=== PATIENT | female | born 1960 | race Two or more races ===

== ENCOUNTER 2021-05-20 10:05 | Outpatient (REF) | payer OTHER, SELFPAY ==
[2021-05-20 11:19] LABS: Glucose Urine UA NEG (NEG); Leukocyte Esterase Urine 1+ (NEG); Nitrite Urine NEG (NEG); Specific Gravity - Urine 1.025 (1.005-1.025); UACC Culture Trigger YES; Urine Blood 2+ (NEG); Urine Ketones NEG (NEG); Urine Protein NEG (NEG-TRACE)
[2021-05-20 11:33] LABS: Appearance Urine HAZY; Color Urine YELLOW
[2021-05-20 12:55] LABS: Bacteria Urine 2+ /LPF; Squamous Epithelial Cell Urine 2+ /LPF; WBC Urine 30-49 /HPF (0-4)
== END 2021-05-20 10:06 | disposition home or self-care (01) ==
LOC: HO.LAB 10:05
PROVIDERS: PCP Internal Medicine; Visit Provider Internal Medicine
DX: R30.0 Dysuria (principal)
CPT/HCPCS: 81001; 81003; 87086

== ENCOUNTER 2021-07-01 09:59 | Outpatient (REF) | payer OTHER, SELFPAY ==
[2021-07-01 10:43] LABS: Glucose Urine UA NEG (NEG); Leukocyte Esterase Urine 2+ (NEG); Nitrite Urine NEG (NEG); PH 5.5 (5.0-8.0); Specific Gravity - Urine >= 1.030 (1.005-1.025); UACC Culture Trigger YES; Urine Blood 3+ (NEG); Urine Ketones NEG (NEG); Urine Protein 1+ MG/DL (NEG-TRACE)
[2021-07-01 10:47] LABS: Appearance Urine HAZY; Color Urine YELLOW
[2021-07-01 12:11] LABS: RBC Urine 30-49 /HPF (0); Squamous Epithelial Cell Urine TRACE /LPF
== END 2021-07-01 10:00 | disposition home or self-care (01) ==
LOC: HO.LAB 09:59
PROVIDERS: PCP Internal Medicine; Visit Provider Internal Medicine
DX: R30.0 Dysuria (principal)
CPT/HCPCS: 81001; 87086

== ENCOUNTER 2021-07-29 15:49 | Outpatient (REF) | payer OTHER, SELFPAY ==
[2021-07-29 16:24] LABS: COVID-19 Test Positive (Negative)
== END 2021-07-29 15:50 | disposition home or self-care (01) ==
LOC: HO.LAB 15:49
PROVIDERS: PCP Internal Medicine; Visit Provider Internal Medicine
DX: Z20.822 Contact with and (suspected) exposure to COVID-19 (principal)
CPT/HCPCS: 36415; 87635; C9803

== ENCOUNTER 2021-10-25 11:28 | Outpatient (REF) | payer OTHER, SELFPAY ==
[2021-10-25 13:00] LABS: Appearance Urine HAZY; Color Urine YELLOW; Glucose Urine UA NEG (NEG); Leukocyte Esterase Urine 1+ (NEG); Nitrite Urine NEG (NEG); PH 5.5 (5.0-8.0); Specific Gravity - Urine >= 1.030 (1.005-1.025); UACC Culture Trigger YES; Urine Blood 1+ (NEG); Urine Ketones NEG (NEG); Urine Protein TRACE MG/DL (NEG-TRACE)
[2021-10-25 13:15] LABS: Squamous Epithelial Cell Urine TRACE /LPF
[2021-10-25 13:16] LABS: Bacteria Urine 1+ /LPF; WBC Urine 50-75 /HPF (0-4)
[2021-10-25 13:17] LABS: RBC Urine 0-2 /HPF (0)
== END 2021-10-25 11:29 | disposition home or self-care (01) ==
LOC: HO.LAB 11:28
PROVIDERS: PCP Internal Medicine; Visit Provider Internal Medicine
DX: R30.0 Dysuria (principal)
CPT/HCPCS: 81001; 81003; 87086

== ENCOUNTER 2021-12-13 07:30 | Outpatient (REF) | payer OTHER, SELFPAY ==
[2021-12-13 07:53] LABS: MANUAL DIFF FLAG NO
[2021-12-13 08:31] LABS: Appearance Urine HAZY; Color Urine YELLOW; Glucose Urine UA NEG (NEG); Leukocyte Esterase Urine 1+ (NEG); Nitrite Urine NEG (NEG); Specific Gravity - Urine 1.025 (1.005-1.025); UACC Culture Trigger YES; Urine Blood NEG (NEG); Urine Ketones NEG (NEG); Urine Protein NEG (NEG-TRACE)
[2021-12-13 08:32] LABS: Basophils Percent Auto 0.5 % (0-2); Eosinophils Percent Auto 0.6 % (0-4); Hematocrit 41.8 % (37.0-47.0); Hemoglobin 13.6 g/dl (12.0-16.0); Imm Gran Abs Auto 0.02 X10*3/uL (0.00-0.03); Imm Gran Pct Auto 0.3 % (0.0-0.4); Lymphocytes Absolute Auto 2.5 X10*3/uL (1.2-4.9); Lymphocytes Percent Auto 38.3 % (20-40); Mean Corpuscular HGB Conc 32.5 g/dl (31.0-35.0); Mean Corpuscular Hemoglobin 28.7 pg (27.0-33.0); Mean Corpuscular Volume 88.2 fL (80.0-98.0); Mean Platelet Volume 10.2 fL (9.4-12.3); Monocytes Absolute Auto 0.5 X10*3/uL (0.1-1.2); Monocytes Percent Auto 8.1 % (2-11); Neutrophils Absolute Auto 3.4 x10*3/uL (2.0-8.3); Neutrophils Percent Auto 52.2 % (45-73); Platelet Count 357 X10*3/uL (160-400); Red Blood Count 4.74 X10*6/uL (4.20-5.50); Red Cell Distribution Width 12.5 % (11.0-16.0); White Blood Count 6.6 X10*3/uL (4.8-10.8)
[2021-12-13 08:48] LABS: Estimated Average Glucose 103 mg/dL; Hemoglobin A1c % 5.2 %
[2021-12-13 08:51] LABS: Bacteria Urine 1+ /LPF; RBC Urine 0-2 /HPF (0); Squamous Epithelial Cell Urine 2+ /LPF
[2021-12-13 08:59] LABS: Alanine Aminotransferase 26 U/L (0-31); Albumin Level 4.1 g/dL (3.5-5.0); Alkaline Phosphatase 70 U/L (39-117); Anion Gap 11 (12-20); Aspartate Amino Transferase 20 U/L (5-31); Bilirubin Total 0.4 mg/dL (0.0-1.0); Blood Urea Nitrogen 22 mg/dL (9-16); Calcium 9.5 mg/dL (8.4-10.2); Carbon Dioxide 26 mmol/L (22-29); Chloride 108 mmol/L (96-108); Cholesterol 223 mg/dL; Estimated Glomerular Filt Rate > 60; Glucose Random 95 mg/dL (60-115); HDL Cholesterol 39 mg/dL; LDL Cholesterol Calculated 166 mg/dl; Potassium 4.4 mmol/L (3.3-5.1); Sodium 141 mmol/L (135-145); Total Protein 7.1 g/dL (6.5-8.0); Triglycerides 90 mg/dL
[2021-12-13 09:22] LABS: Free T4 (Free Thyroxine) 1.07 ng/dL (0.71-1.85); Thyroid Stimulating Hormone 2.19 uIU/mL (0.32-4.0); Vitamin D 25-OH Total 23.2 ng/mL (>30)
[2021-12-13 10:25] LABS: Folate 11.9 ng/mL (> or = 4.0); Vitamin B12 513 pg/mL (200-900)
== END 2021-12-13 07:31 | disposition home or self-care (01) ==
LOC: HO.LAB 07:30
PROVIDERS: PCP Internal Medicine; Visit Provider Internal Medicine
DX: E78.00 Pure hypercholesterolemia, unspecified (principal); I10 Essential (primary) hypertension; R73.02 Impaired glucose tolerance (oral)
CPT/HCPCS: 36415; 80053; 80061; 81001; 82306; 82607; 82746; 83036; 84439; 84443; 85025; 87086

== ENCOUNTER 2021-12-15 09:05 | Outpatient (REF) | payer OTHER, SELFPAY ==
--- NOTE | ~2021-12-15 | MM_ITS ---
EXAMINATION: MM SCREENING DIGITAL BREAST TOMOSYNTHESIS, BILATERAL CLINICAL INFORMATION: Screening. Asymptomatic. The lifetime risk of breast cancer based on the Tyrer-Cuzick Model is 3%. COMPARISON: Mammography: 07/31/2018, 03/22/2017, 12/26/2015 TECHNIQUE: Digital breast tomosynthesis is performed in both the craniocaudal and mediolateral oblique views along with computer-aided detection (CAD). Synthesized 2D images are generated from the tomosynthesis. FINDINGS: There are scattered areas of fibroglandular density (ACR BI-RADS breast composition Category b). There are no significant masses, abnormal calcifications, or other abnormalities. Breast tissue composition borders on predominantly fatty. Tiny nodular asymmetry mid upper right breast on MLO view is stable since 2017. No developing density. The axilla and skin contours are unremarkable. MM/MM tomosynthesis screening BI IMPRESSION: No mammographic evidence of malignancy. ASSESSMENT: BI-RADS 2: Benign RECOMMENDATION: Routine annual mammography screening. This patient's information was entered into a reminder system with a target due date for their next mammogram.
== END 2021-12-15 09:06 | disposition home or self-care (01) ==
LOC: HO.MAMMO 09:05
PROVIDERS: PCP Internal Medicine; Visit Provider Internal Medicine
DX: Z12.31 Encounter for screening mammogram for malignant neoplasm of breast (principal)
CPT/HCPCS: 77063; 77067

== ENCOUNTER 2022-03-29 07:41 | Outpatient (REF) | payer OTHER, SELFPAY ==
[2022-03-29 09:17] LABS: Alanine Aminotransferase 20 U/L (0-31); Albumin Level 4.1 g/dL (3.5-5.0); Alkaline Phosphatase 76 U/L (39-117); Anion Gap 13 (12-20); Aspartate Amino Transferase 18 U/L (5-31); Bilirubin Total 0.3 mg/dL (0.0-1.0); Blood Urea Nitrogen 11 mg/dL (9-16); Calcium 9.4 mg/dL (8.4-10.2); Carbon Dioxide 25 mmol/L (22-29); Chloride 106 mmol/L (96-108); Cholesterol 247 mg/dL; Estimated Glomerular Filt Rate > 60; Glucose Random 98 mg/dL (60-115); HDL Cholesterol 49 mg/dL; LDL Cholesterol Calculated 169 mg/dl; Potassium 4.4 mmol/L (3.3-5.1); Sodium 140 mmol/L (135-145); Total Protein 7.3 g/dL (6.5-8.0); Triglycerides 148 mg/dL
== END 2022-03-29 07:42 | disposition home or self-care (01) ==
LOC: HO.LAB 07:41
PROVIDERS: PCP Internal Medicine; Visit Provider Internal Medicine
DX: E78.00 Pure hypercholesterolemia, unspecified (principal)
CPT/HCPCS: 36415; 80053; 80061

== ENCOUNTER 2022-04-08 10:26 | Outpatient (REF) | payer OTHER, SELFPAY ==
--- NOTE | ~2022-04-08 | XR_ITS ---
EXAMINATION: XR HIP, LEFT CLINICAL INFORMATION: Left hip pain COMPARISON: None TECHNIQUE: Two views of the left hip. FINDINGS: Bones and soft tissues are normal. No fracture. Alignment is anatomic. Hip joint space is maintained. XR/XR hip LT min 2V IMPRESSION: Normal left hip.
--- NOTE | ~2022-04-08 | XR_ITS ---
EXAMINATION: XR LUMBOSACRAL SPINE CLINICAL INFORMATION: Low back pain COMPARISON: None TECHNIQUE: Three views of the lumbosacral spine. FINDINGS: There are 5 not ribs bearing vertebral bodies in the lumbar spine. There is spina bifida occulta at S1 Vertebral bodies are well aligned and intervertebral discs are preserved. Pedicles are intact and sacroiliac joints unremarkable. XR/XR lumbar spine 2-3V IMPRESSION: Unremarkable examination.
== END 2022-04-08 10:27 | disposition home or self-care (01) ==
LOC: HO.XRAY 10:26
PROVIDERS: PCP Internal Medicine; Visit Provider Internal Medicine
DX: M54.50 Low back pain, unspecified (principal); M25.552 Pain in left hip
CPT/HCPCS: 72100; 73502

== ENCOUNTER 2022-07-04 07:31 | Outpatient (REF) | payer OTHER, SELFPAY ==
[2022-07-04 07:55] LABS: MANUAL DIFF FLAG NO
[2022-07-04 08:36] LABS: Basophils Percent Auto 0.4 % (0-2); Eosinophils Absolute Auto 0.1 X10*3/uL (0.0-0.4); Eosinophils Percent Auto 0.9 % (0-4); Hematocrit 39.4 % (37.0-47.0); Hemoglobin 13.4 g/dl (12.0-16.0); Imm Gran Abs Auto 0.04 X10*3/uL (0.00-0.03); Imm Gran Pct Auto 0.5 % (0.0-0.4); Lymphocytes Absolute Auto 2.5 X10*3/uL (1.2-4.9); Lymphocytes Percent Auto 32.2 % (20-40); Mean Corpuscular Hemoglobin 29.8 pg (27.0-33.0); Mean Corpuscular Volume 87.6 fL (80.0-98.0); Mean Platelet Volume 10.1 fL (9.4-12.3); Monocytes Absolute Auto 0.6 X10*3/uL (0.1-1.2); Monocytes Percent Auto 7.8 % (2-11); Neutrophils Absolute Auto 4.6 x10*3/uL (2.0-8.3); Neutrophils Percent Auto 58.2 % (45-73); Platelet Count 314 X10*3/uL (160-400); Red Cell Distribution Width 13.2 % (11.0-16.0); White Blood Count 7.8 X10*3/uL (4.8-10.8)
[2022-07-04 08:48] LABS: Estimated Average Glucose 103 mg/dL; Hemoglobin A1c % 5.2 %
[2022-07-04 09:00] LABS: Appearance Urine CLEAR; Color Urine YELLOW; Glucose Urine UA NEG (NEG); Leukocyte Esterase Urine NEG (NEG); Nitrite Urine NEG (NEG); PH 5.5 (5.0-8.0); Specific Gravity - Urine >= 1.030 (1.005-1.025); Urine Blood NEG (NEG); Urine Ketones NEG (NEG); Urine Protein NEG (NEG-TRACE)
[2022-07-04 09:04] LABS: Alanine Aminotransferase 41 U/L (0-31); Albumin Level 3.9 g/dL (3.5-5.0); Alkaline Phosphatase 71 U/L (39-117); Anion Gap 16 (12-20); Aspartate Amino Transferase 31 U/L (5-31); Bilirubin Total 0.4 mg/dL (0.0-1.0); Blood Urea Nitrogen 14 mg/dL (9-16); Calcium 8.7 mg/dL (8.4-10.2); Carbon Dioxide 24 mmol/L (22-29); Chloride 105 mmol/L (96-108); Cholesterol 203 mg/dL; Estimated Glomerular Filt Rate > 60; Glucose Random 100 mg/dL (60-115); HDL Cholesterol 51 mg/dL; LDL Cholesterol Calculated 130 mg/dl; Potassium 4.3 mmol/L (3.3-5.1); Sodium 141 mmol/L (135-145); Total Protein 6.7 g/dL (6.5-8.0); Triglycerides 110 mg/dL
== END 2022-07-04 07:32 | disposition home or self-care (01) ==
LOC: HO.LAB 07:31
PROVIDERS: PCP Internal Medicine; Visit Provider Internal Medicine
DX: E78.00 Pure hypercholesterolemia, unspecified (principal); R73.02 Impaired glucose tolerance (oral); R30.0 Dysuria
CPT/HCPCS: 36415; 80053; 80061; 81003; 83036; 85025

== ENCOUNTER 2022-10-12 07:39 | Day surgery (SDC) | payer OTHER, SELFPAY ==
--- NOTE | 2022-10-11 10:52 | HO.ANESPROP2 ---
Documented by User: Cami Odom NP 10/11/22 10:53 HPI - Anesthesia Eval Consult details Narrative: 62yo F for Colonoscopy PMFSH Active Problems Active Problems: All Active Problems (Updated 09/28/22 @ 12:46 by Qamar Marcus MD) Annual physical exam (Acute) Breast cancer screening by mammogram (Acute) Tubular adenoma of colon (Acute) COVID-19 virus infection (Acute) UTI (urinary tract infection) (Acute) Low back pain (Acute) Urinary incontinence, mixed (Acute) Pes anserinus bursitis of left knee (Acute) Annual physical exam (Acute) Breast cancer screening by mammogram (Acute) Hearing deficit (Acute) Dysuria (Acute) Impaired glucose tolerance (Acute) Hypercholesterolemia (Acute) Obesity (BMI 30-39.9) (Acute) Recurrent major depression (Acute) GERD (gastroesophageal reflux disease) (Acute) Hypertension (Acute) Past Medical History Medical History (Updated 09/28/22 @ 12:46 by Qamar Marcus MD) Allergic rhinitis Fatty liver GERD (gastroesophageal reflux disease) Hypercholesterolemia Hypertension Impaired glucose tolerance Migraine Obesity (BMI 30-39.9) Recurrent major depression Vitamin D deficiency Family History Family History (Updated 09/23/21 @ 15:41 by Qamar Marcus MD) Sister Myocardial infarct Paternal Grandfather Prostate CA Brother Colon cancer Substance abuse Surgical History Surgical History (Updated 10/11/22 @ 09:16 by Thi Sargent RN) History of section History of colonoscopy S/P WAYNE-BSO (total abdominal hysterectomy and bilateral salpingo-oophorectomy) Social History Social History (Updated 09/23/21 @ 15:42 by Qamar Marcus MD) Housing: House Alcohol intake: never Patient Tobacco Use Status: Former Tobacco user Tobacco use type: Cigarette Years Smoked: 1999 quit e-Cigarette/Vaping Use: Never Used Second Hand Smoke Exposure: No Use of substances other than those prescribed or required for medical reasons: No Are you DNR?: No Advance Directives: No Advance Directives Information Provided: Yes Current occupational status: employed Cognitive needs: No Hearing needs: No Vision needs: Yes Meds Allergies Allergy/AdvReac Type Severity Reaction Status Date / Time atorvastatin [Lipitor] AdvReac Mild joint Verified 09/28/22 12:17 cramps pravastatin AdvReac Mild body aches Verified 09/28/22 12:17 simvastatin AdvReac Mild body aches Verified 09/28/22 12:17 Exam Exam Date and Time: October 11, 2022 1052 Pertinent Lab Results Pertinent Lab Results: Laboratory Tests 07/04/22 07/04/22 07:53 07:53 WBC 7.8 Hgb 13.4 Hct 39.4 Plt Count 314 Sodium 141 Potassium 4.3 Chloride 105 Carbon Dioxide 24 BUN 14 Creatinine 0.72 Assessment and Plan Assessment Anesthesia Assessment: Chart Reviewed Documented by User: Dara Aguilar MD 10/12/22 08:45 PMFSH Past Medical History Medical History (Updated 09/28/22 @ 12:46 by Qamar Marcus MD) Allergic rhinitis Fatty liver GERD (gastroesophageal reflux disease) Hypercholesterolemia Hypertension Impaired glucose tolerance Migraine Obesity (BMI 30-39.9) Recurrent major depression Vitamin D deficiency Family History Family History (Updated 09/23/21 @ 15:41 by Qamar Marcus MD) Sister Myocardial infarct Paternal Grandfather Prostate CA Brother Colon cancer Substance abuse Family history of problems with anesthesia: No Surgical History Surgical History (Updated 10/11/22 @ 09:16 by Thi Sargent RN) History of section History of colonoscopy S/P WAYNE-BSO (total abdominal hysterectomy and bilateral salpingo-oophorectomy) History of Problems with Anesthesia: No Social History Social History (Updated 09/23/21 @ 15:42 by Qamar Marcus MD) Housing: House Alcohol intake: never Patient Tobacco Use Status: Former Tobacco user Tobacco use type: Cigarette Years Smoked: 1999 quit e-Cigarette/Vaping Use: Never Used Second Hand Smoke Exposure: No Use of substances other than those prescribed or required for medical reasons: No Are you DNR?: No Advance Directives: No Advance Directives Information Provided: Yes Current occupational status: employed Cognitive needs: No Hearing needs: No Vision needs: Yes Meds Allergies Allergy/AdvReac Type Severity Reaction Status Date / Time atorvastatin [Lipitor] AdvReac Mild joint Verified 09/28/22 12:17 cramps pravastatin AdvReac Mild body aches Verified 09/28/22 12:17 simvastatin AdvReac Mild body aches Verified 09/28/22 12:17 Exam Airway Mallampati Class: II TM Dist: >3cm Neck ROM: Full Assessment and Plan Assessment Anesthesia Assessment: Anesthesia Plan Discussed Final Anesthetic Review Family History of Problems with Anesthesia: No History of Problems with Anesthesia: No NPO: Yes ASA Class: II Final Preanesthetic Review: No Changes in Pt Med Stat, Meds/Allgs Chart Reviewed, Consent Obtained/Reviewed and Anes Risks/Benef Reviewed Patient Risk: Low Procedure Risk: Low Anesthetic Plan Anesthetic Plan: MAC: Disposition: Standard PACU
[2022-10-12 07:59] VITALS: BMI 32.5
[2022-10-12 08:07] VITALS: BP 155/83; PULSE 59; RESP 16; TEMP 36.2; O2SAT 99
[2022-10-12] MEDS: Lactated Ringers 1,000 ML 100 ML IVCONT (08:31)
--- NOTE | 2022-10-12 10:41 | P.BOP_ITS ---
Brief Operative Note Date of Service: 10/12/22 Pre-op diagnosis: Screening Post-op diagnosis: other (Colon polyp) Procedure: Colonoscopy to the cecum and TI with bx/removal of polyp Surgeon: Rodger Parham Anesthesia: MAC Was an Garment Manufacturer used for this Procedure?: No Estimated blood loss (mL): 2.0 Pathology: other (A. Polyp at 50cm) Condition: stable Disposition: PACU
[2022-10-12 10:43] VITALS: BP 116/44; PULSE 68; RESP 16; TEMP 36.3; O2SAT 96
[2022-10-12 10:58] VITALS: BP 153/75; PULSE 52; RESP 18; TEMP 36.3; O2SAT 99
[2022-10-12 11:02] VITALS: TEMP 36.6
--- NOTE | 2022-10-12 11:49 | OP_ITS ---
SURGEON: Rodger Parham MD INDICATIONS: The patient presents for evaluation of colorectal cancer screening and family history of colon cancer. Full consent was obtained from her for this, including risks of bleeding and perforation. PREOPERATIVE DIAGNOSIS: Colorectal cancer screening. POSTOPERATIVE DIAGNOSIS: PROCEDURE PERFORMED: Colonoscopy to the cecum and terminal ileum with biopsy removal of polyp. ESTIMATED BLOOD LOSS: COMPLICATIONS: ANESTHESIA: ASSISTANTS: SPECIMENS: POSTOPERATIVE DIAGNOSES: Colorectal cancer screening, small colon polyp, sigmoid diverticulosis, and internal hemorrhoids. PREOPERATIVE MEDICATION USED: Monitored anesthesia care. DESCRIPTION OF PROCEDURE: The patient was placed in the left lateral decubitus position. The digital rectal exam revealed no abnormalities. The Olympus video pediatric colonoscope was entered into the rectum and advanced easily to the cecum. Once in the cecum, I did identify normal-appearing cecal pouch with appendiceal orifice and a normal-appearing ileocecal valve. The terminal ileum was cannulated and appeared normal. The scope was withdrawn back in the colon. The entire cecum and ileocecal valve appeared normal. The scope was slowly withdrawn assessing all mucosal surfaces carefully. Preparation was excellent. A 50 cm was an approximately 3 or 4 mm polyp, which was biopsied and completely removed with cold biopsy forceps. I did not visualize any other polyps, colitis, or angiodysplasia. There was a mild amount of sigmoid diverticulosis. In the rectum, scope was retroflexed visualizing internal hemorrhoids, but no other pathology. The rectal mucosa appeared normal. Scope was straightened and withdrawn from the patient. She tolerated the procedure well and was returned to the recovery area in stable condition. IMPRESSION: 1. Small colon polyp, status post biopsy removal. 2. Diverticulosis. 3. Internal hemorrhoids. PLAN: The results of the pathology will be checked. I would recommend a repeat colonoscopy in 5 years for further screening and surveillance. She will otherwise see me on a p.r.n. basis. MD JP Dasilva/CHARLEY / [id number]
== END 2022-10-12 11:20 | disposition home or self-care (01) ==
PROVIDERS: PCP Internal Medicine; Visit Provider Internal Medicine
PROC: 0DJD8ZZ Inspection of Lower Intestinal Tract, Via Natural or Artificial Opening Endoscopic (ICD-10-PCS; CPT 45378; principal; 2022-10-12 09:40)
DX: Z12.11 Encounter for screening for malignant neoplasm of colon (principal); Z80.0 Family history of malignant neoplasm of digestive organs; Z86.010 Personal history of colon polyps; K51.40 Inflammatory polyps of colon without complications; K57.30 Diverticulosis of large intestine without perforation or abscess without bleeding; K64.8 Other hemorrhoids; K21.9 Gastro-esophageal reflux disease without esophagitis; I10 Essential (primary) hypertension; E78.00 Pure hypercholesterolemia, unspecified; E55.9 Vitamin D deficiency, unspecified; Z79.899 Other long term (current) drug therapy; Z88.8 Allergy status to other drugs, medicaments and biological substances; Z87.891 Personal history of nicotine dependence
CPT/HCPCS: 45380; 88305

== ENCOUNTER 2022-11-28 10:36 | Outpatient (REF) | payer OTHER, SELFPAY | END 2022-11-28 10:37 | disposition home or self-care (01) | LOC: HO.SH 10:36 | PROVIDERS: Visit Provider Internal Medicine | DX: Z01.118 Encounter for examination of ears and hearing with other abnormal findings (principal); H90.3 Sensorineural hearing loss, bilateral | CPT/HCPCS: 92557; 92567 ==

== ENCOUNTER 2022-12-19 09:28 | Outpatient (REF) | payer OTHER, SELFPAY ==
--- NOTE | ~2022-12-19 | MM_ITS ---
EXAMINATION: MM SCREENING DIGITAL BREAST TOMOSYNTHESIS, BILATERAL CLINICAL INFORMATION: Screening. Asymptomatic. The lifetime risk of breast cancer based on the Tyrer-Cuzick Model is 4%. COMPARISON: Mammography: 12/15/2021, 07/31/2018, 03/22/2017 TECHNIQUE: Digital breast tomosynthesis is performed in both the craniocaudal and mediolateral oblique views along with computer-aided detection (CAD). Synthesized 2D images are generated from the tomosynthesis. Additional left CC view is provided. FINDINGS: There are scattered areas of fibroglandular density (ACR BI-RADS breast composition Category b). There are no significant masses, abnormal calcifications, or other abnormalities. No architectural abnormality or developing density or significant change from prior studies. Breast tissue composition borders on predominantly fatty. MM/MM tomosynthesis screening BI IMPRESSION: No mammographic evidence of malignancy. ASSESSMENT: BI-RADS 1: Negative RECOMMENDATION: Routine annual mammography screening. This patient's information was entered into a reminder system with a target due date for their next mammogram.
== END 2022-12-19 09:29 | disposition home or self-care (01) ==
LOC: HO.MAMMO 09:28
PROVIDERS: Visit Provider Internal Medicine
DX: Z12.31 Encounter for screening mammogram for malignant neoplasm of breast (principal)
CPT/HCPCS: 77063; 77067

== ENCOUNTER 2023-02-23 10:15 | Outpatient (REF) | payer OTHER, SELFPAY ==
--- NOTE | ~2023-02-23 | XR_ITS ---
EXAMINATION: XR KNEE AP STANDING CLINICAL INFORMATION: Right knee pain. COMPARISON: Radiographs dated 04/21/2011. TECHNIQUE: AP bilateral standing view of the knees was obtained. FINDINGS: Bony alignment and mineralization are normal. The lateral and medial joint space compartments of the right knee are well-maintained. There is mild asymmetric narrowing of the medial joint space compartment of the left knee, with peripheral osteophyte formation. The lateral joint space compartment is well-maintained. No fracture or dislocation is seen. The soft tissue planes are unremarkable, without foreign body. XR/XR knee standing BI IMPRESSION: There is mild degenerative change of the medial joint space compartment left knee. The right knee is unremarkable. No significant varus or valgus configuration is seen bilaterally.
== END 2023-02-23 10:16 | disposition home or self-care (01) ==
LOC: HO.XRAY 10:15
PROVIDERS: PCP Internal Medicine; Visit Provider Internal Medicine
DX: M25.561 Pain in right knee (principal); M25.562 Pain in left knee
CPT/HCPCS: 73565

== ENCOUNTER 2023-10-05 12:24 | Outpatient (AMB) | payer OTHER, SELFPAY ==
[2023-10-05 12:39] VITALS: BP 178/90; PULSE 76; O2SAT 96; BMI 32.8
--- NOTE | 2023-10-05 12:39 | MHC.PC.OV ---
Vital Signs 10/05/23 12:39 Height 5 ft 1 in Weight 173 lb 8 oz BMI 32.8 BP 178/90 H Blood Pressure Location Lt brachial Position Sitting Pulse 76 Pulse Source Pulse Oximeter Pulse Oximetry (%) 96 Oxygen Delivery Method Room Air Intake Visit Reasons: physical Cork Compounder Required: No Accompanied by: Self / Same As Patient Allergies atorvastatin [Lipitor] Adverse Reaction (Mild, Verified 10/05/23 12:41) joint cramps pravastatin Adverse Reaction (Mild, Verified 10/05/23 12:41) body aches simvastatin Adverse Reaction (Mild, Verified 10/05/23 12:41) body aches Medication List - Last Reconciled 10/05/23 by Qamar Marcus MD blood pressure monitor (Blood Pressure Kit) As directed hydrochlorothiazide 25 mg PO DAILY lisinopril 40 mg PO DAILY 30 days rosuvastatin 5 mg PO DAILY 30 days Tobacco use date assessed: 02/23/23 Fall risk assessment: No Falls in past year Last assessed Fall Risk: 10/05/23 Dental Screening Dental Screen Date: 10/25/23 Did you have a dental visit in the last 12 months?: No Did you have a dental problem in the last 6 months where you did not have access to dental care?: No Was dental information given to patient?: Yes HPI physical HPI Details 63-year-old obese female with hypertension coming for physical exam last seen in April 2023. Colonoscopy is up-to-date September 2022 mammograms up-to-date [facility] Medical History (Updated 10/05/23 @ 12:57 by Qamar Marcus MD) Impaired glucose tolerance Allergic rhinitis Migraine Hypercholesterolemia Obesity (BMI 30-39.9) Recurrent major depression Fatty liver GERD (gastroesophageal reflux disease) Hypertension Vitamin D deficiency Surgical History History of colonoscopy History of section S/P WAYNE-BSO (total abdominal hysterectomy and bilateral salpingo-oophorectomy) Family History Sister Myocardial infarct Paternal Grandfather Prostate CA Brother Colon cancer Substance abuse Social History Housing: House Alcohol intake: never Patient Tobacco Use Status: Former Tobacco user Tobacco use type: Cigarette Years Smoked: 2000 quit e-Cigarette/Vaping Use: Never Used Second Hand Smoke Exposure: No Current occupational status: employed Cognitive needs: No Hearing needs: No Vision needs: Yes Questionnaire Thrive Questionnaire Date Thrive assessed: 02/23/23 MOLINA-7 AMB Questionnaire MOLINA-7 Date MOLINA - 7 assessed: 02/23/23 Source: Developed by Drs. Rodger Butcher, Miri Lee, Ellis Upton and colleagues, with an educational trace from [place]. Review of Systems Const Denies poor appetite and Denies weakness Eyes Denies no additional complaints ENT Reports Normal hearing present, Denies dizziness, Denies nasal congestion, Denies tinnitus and Denies sore throat Card Denies chest pain, Denies syncope, Denies rapid heart rate and Denies dyspnea Resp Denies cough and Denies dyspnea GI Denies change in stool character, Reports constipation, Denies diarrhea, Denies nausea and Denies vomiting Denies urinary frequency, Denies difficulty voiding and Denies dysuria Neuro Reports Normal hearing present, Denies confusion, Denies dizziness, Denies syncope and Denies weakness Psych Denies confusion Physical exam (Primary Care) Vital Signs: Last Vital Signs Pulse 76 10/05/23 12:39 BP 178/90 H 10/05/23 12:39 Pulse Ox 96 10/05/23 12:39 Oxygen Delivery Method Room Air 10/05/23 12:39 BMI result Body Mass Index 32.8 Tobacco/Smoking Status: Tobacco use Status Tobacco use date assessed 02/23/23 10/05/23 12:47 Patient Tobacco Use Status Former Tobacco user 10/05/23 12:47 Tobacco use type Cigarette 10/05/23 12:47 e-Cigarette/Vaping Use Never Used 10/05/23 12:47 Thrive Assessment: Date of Thrive Assessment Date Thrive assessed 02/23/23 10/05/23 12:47 Const General: alert and awake; No confusion Orientation/consciousness: No confusion HENMT Head: Yes normocephalic Ears: external ears normal and TM's normal bilaterally Face and sinus: Yes normal facial exam Mouth: moist mucous membranes Throat: Yes tonsils normal Eyes Conjunctivae: conjunctivae normal Pupils: Equal, round and reactive pupils present and Pupil accommodation reflex normal Direct Ophthalmoscopy: normal light reflex Neck Neck: No lymphadenopathy Thyroid: Thyroid normal Chest Chest palpation & inspection: normal inspection of the chest Resp Effort & Inspection: normal respiratory effort and no audible wheezes Auscultation: clear to auscultation bilaterally, no crackles, no wheezes and lung sounds not diminished Cardio Rate: regular rate Rhythm: regular rhythm Peripheral pulses: radial pulses present and dorsalis pedis present GI Palpation (GI): no masses Auscultation: normal bowel sounds and normoactive bowel sounds Rectal Exam - Female: deferred Skin General skin exam: no rashes or lesions noted Rashes: no rashes Neuro General: deep tendon reflexes 2+ bilaterally and No confusion Cranial nerves: Yes Equal, round and reactive pupils present, Yes Midline tongue present, Yes Normal hearing present and Yes Ability to bilaterally elevate shoulders present Cognition (Neuro): normal cognition Gait exam (Neuro): Normal gait present Motor exam (neuro): 5/5 motor strength present throughout Deep tendon reflexes (DTR's): Right brachioradialis reflex intensity grade: 2+, Left brachioradialis reflex intensity grade: 2+, Right patellar reflex intensity grade: 2+ and Left patellar reflex intensity grade: 2+ Extrem General: No edema Office Procedures Flu Questionnaire Does the patient have a severe egg allergy?: No Does the patient have severe life threatening allergies?: No Does the patient have a fever or illness today?: No Has the patient ever had Guillain-[place] Syndrome?: No Has the patient ever had any past reaction to a flu shot?: No Immunizations flu vacc [id number] 6mos up(PF) 60 mcg(15 mcgx4)/0.5 mL IM syringe Performing Provider: Qamar Marcus MD [facility] Administered by: WILNER Forbes on 10/05/23 12:55 Dose Route Admin Location Dispensed Lot Number Expiration Date NDC Toilet Products Molder 0.5 mL IM Left Deltoid 0.5 mL [id number] 05/19/24 05123-519-33 [employer] VIS Given Date VIS Provided VIS Publication Date 10/05/23 Single Vaccine 21 Eligibility Eligibility Date Funding Source Not [facility] Eligible 10/05/23 Private Assessment and Plan Assessment & Plan (1) Annual physical exam: Code(s): Z00.00 - Encounter for general adult medical examination without abnormal findings (2) Hypertension: Code(s): I10 - Essential (primary) hypertension Plan: Continue with blood pressure medication. Decrease salt intake and exercise patient presently on lisinopril 40 mg and hydrochlorothiazide 25 mg (3) GERD (gastroesophageal reflux disease): Code(s): K21.9 - Gastro-esophageal reflux disease without esophagitis Plan: Avoid the foods that causes that usually spicy foods, tomato products, juices, coffee, soda and foods that your sensitive to. After eating do not lie down, allow 3-4 hours before in lie down. And keep the head of bed above 30 degrees to avoid the acid from going up. (4) Recurrent major depression: Comment: Declined referral for counseling February 2023 Code(s): F33.9 - Major depressive disorder, recurrent, unspecified Plan: Stable (5) Obesity (BMI 30-39.9): Code(s): E66.9 - Obesity, unspecified Plan: Diet and exercise (6) Hypercholesterolemia: Code(s): E78.00 - Pure hypercholesterolemia, unspecified Plan: Avoid fried foods, chicken skin, eggs, butter margarine, pastries and meat. Be it pork or beef they have a lot of cholesterol on rosuvastatin LDL goal of less than 130 and triglyceride of less than 150 (7) Impaired glucose tolerance: Code(s): R73.02 - Impaired glucose tolerance (oral) Plan: Decrease the amount of carbohydrate intake, pasta, bread, rice and potatoes are all sugar and that is aside from all the sweet stuff, remember that fruits are good but they are Sweet also. (8) Urge incontinence: Code(s): N39.41 - Urge incontinence Orders: Orders Influenza [id number] Immunization Today Z23 - Encounter for immunization Medications: New amlodipine 2.5 mg PO DAILY 30 tabs 2RF I10 - Essential (primary) hypertension tolterodine ER (Detrol LA) 4 mg PO DAILY 30 caps 2RF N39.41 - Urge incontinence Coding Level of Care Code New Pt Prev Care 40-64y(27907) Diagnoses Annual physical exam Z00.00 Hypertension I10 GERD (gastroesophageal reflux disease) K21.9 Recurrent major depression F33.9 Obesity (BMI 30-39.9) E66.9 Hypercholesterolemia E78.00 Impaired glucose tolerance R73.02 Urge incontinence N39.41
== END 2023-10-05 13:08 | disposition home or self-care (01) ==
PROVIDERS: Visit Provider Internal Medicine
DX: Z00.00 Encounter for general adult medical examination without abnormal findings (principal); F33.9 Major depressive disorder, recurrent, unspecified; Z68.32 Body mass index [BMI] 32.0-32.9, adult; E66.9 Obesity, unspecified; I10 Essential (primary) hypertension; K21.9 Gastro-esophageal reflux disease without esophagitis; E78.00 Pure hypercholesterolemia, unspecified; R73.02 Impaired glucose tolerance (oral); N39.41 Urge incontinence; Z23 Encounter for immunization
CPT/HCPCS: 90471; 90686; 99386

== ENCOUNTER 2023-12-01 07:27 | Outpatient (REF) | payer OTHER, SELFPAY ==
[2023-12-01 07:48] LABS: MANUAL DIFF FLAG NO
[2023-12-01 08:41] LABS: Basophils Percent Auto 0.5 % (0-2); Eosinophils Absolute Auto 0.1 X10*3/uL (0.0-0.4); Eosinophils Percent Auto 0.9 % (0-4); Hematocrit 40.7 % (37.0-47.0); Hemoglobin 14.2 g/dl (12.0-16.0); Imm Gran Abs Auto 0.03 X10*3/uL (0.00-0.03); Imm Gran Pct Auto 0.4 % (0.0-0.4); Lymphocytes Absolute Auto 3.3 X10*3/uL (1.2-4.9); Lymphocytes Percent Auto 40.6 % (20-40); Mean Corpuscular HGB Conc 34.9 g/dl (31.0-35.0); Mean Platelet Volume 10.5 fL (9.4-12.3); Monocytes Absolute Auto 0.6 X10*3/uL (0.1-1.2); Monocytes Percent Auto 7.8 % (2-11); Neutrophils Percent Auto 49.8 % (45-73); Platelet Count 326 X10*3/uL (160-400); Red Blood Count 4.73 X10*6/uL (4.20-5.50); Red Cell Distribution Width 12.9 % (11.0-16.0); White Blood Count 8.1 X10*3/uL (4.8-10.8)
[2023-12-01 09:24] LABS: Alanine Aminotransferase 40 U/L (0-31); Albumin Level 4.1 g/dL (3.5-5.0); Alkaline Phosphatase 60 U/L (39-117); Anion Gap 13 (12-20); Aspartate Amino Transferase 28 U/L (5-31); Bilirubin Total 0.5 mg/dL (0.0-1.0); Blood Urea Nitrogen 18 mg/dL (9-16); Calcium 9.2 mg/dL (8.4-10.2); Carbon Dioxide 30 mmol/L (22-29); Chloride 101 mmol/L (96-108); Cholesterol 273 mg/dL (<200); Estimated Glomerular Filt Rate > 60; Glucose Random 87 mg/dL (60-115); HDL Cholesterol 44 mg/dL (>40); LDL Cholesterol Calculated 202 mg/dL (<100); Potassium 3.2 mmol/L (3.3-5.1); Sodium 141 mmol/L (135-145); Total Protein 7.3 g/dL (6.5-8.0); Triglycerides 138 mg/dL (<150)
[2023-12-01 09:47] LABS: Free T4 (Free Thyroxine) 1.03 ng/dL (0.71-1.85); Thyroid Stimulating Hormone 3.06 uIU/mL (0.32-4.0); Vitamin D 25-OH Total 23.6 ng/mL (>30)
[2023-12-01 10:52] LABS: Folate 10.9 ng/mL (> or = 4.0); Vitamin B12 448 pg/mL (200-900)
== END 2023-12-01 07:28 | disposition home or self-care (01) ==
LOC: HO.LAB 07:27
PROVIDERS: PCP Internal Medicine; Visit Provider Internal Medicine
DX: I10 Essential (primary) hypertension (principal); E78.00 Pure hypercholesterolemia, unspecified
CPT/HCPCS: 36415; 80053; 80061; 82306; 82607; 82746; 84439; 84443; 85025

== ENCOUNTER 2023-12-11 14:36 | Outpatient (AMB) | payer OTHER, SELFPAY ==
[2023-12-11 14:38] VITALS: BP 148/90; PULSE 64; O2SAT 99; BMI 33.4
--- NOTE | 2023-12-11 14:38 | A.OFFPC_ITS ---
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 Allergies hydrochlorothiazide Adverse Reaction (Intermediate, Verified 12/11/23 14:38) hypokalemia lisinopril Adverse Reaction (Intermediate, Verified 12/11/23 14:38) leg cramps atorvastatin [Lipitor] Adverse Reaction (Mild, Verified 12/11/23 14:38) joint cramps pravastatin Adverse Reaction (Mild, Verified 12/11/23 14:38) body aches simvastatin Adverse Reaction (Mild, Verified 12/11/23 14:38) body aches Medication List - Last Reconciled 12/11/23 by Qamar Marcus MD amlodipine 5 mg PO DAILY blood pressure monitor (Blood Pressure Kit) As directed lisinopril 40 mg PO DAILY 30 days rosuvastatin 5 mg PO DAILY 30 days tolterodine ER (Detrol LA) 4 mg PO DAILY Tobacco use date assessed: 12/11/23 Fall risk assessment: No Falls in past year Last assessed Fall Risk: 12/11/23 Dental Screening Dental Screen Date: 12/11/23 Did you have a dental visit in the last 12 months?: No Did you have a dental problem in the last 6 months where you did not have access to dental care?: No HPI HTN , Urge incontinence HPI Details 63-year-old obese female with hypertensi on GERD recurrent major depression hypercholesterolemia impaired glucose tolerance and urge incontinence last seen in September 2023 for physical exam. Patient's colonoscopy is up-to-date September 2022 mammogram is up-to-date November 2022. Due this month. Discussion with the patient with regards to the medication and patient has he is taken the medication and advised to bring the medications in. Patient brought in 2.5 mg of amlodipine and 5 mg of amlodipine at the same time patient also brought in hydrochlorothiazide which has been stopped. As for cholesterol is supposed to be on rosuvastatin but not really sure if the patient is taking it as the LDL changed. [facility] Medical History (Updated 12/01/23 @ 18:48 by Qamar Marcus MD) Impaired glucose tolerance Allergic rhinitis Migraine Hypercholesterolemia Obesity (BMI 30-39.9) Recurrent major depression Fatty liver GERD (gastroesophageal reflux disease) Hypertension Vitamin D deficiency Surgical History History of colonoscopy History of section S/P WAYNE-BSO (total abdominal hysterectomy and bilateral salpingo-oophorectomy) Family History Sister Myocardial infarct Paternal Grandfather Prostate CA Brother Colon cancer Substance abuse Social History Housing: House Alcohol intake: never Patient Tobacco Use Status: Former Tobacco user Tobacco use type: Cigarette Years Smoked: 1999 quit e-Cigarette/Vaping Use: Never Used Second Hand Smoke Exposure: No Current occupational status: employed Cognitive needs: No Hearing needs: No Vision needs: Yes Questionnaire Thrive Questionnaire Date Thrive assessed: 12/11/23 AUDIT C Alcohol Use Questionnaire (AUDIT-C) 1. How often do you have a drink containing alcohol?: Never 3. How often do you have six or more drinks on one occasion?: Never Total Score: 0 MOLINA-7 AMB Questionnaire MOLINA-7 Date MOLINA - 7 assessed: 12/11/23 Source: Developed by Drs. Rodger Butcher, Miri Lee, Ellis Upton and colleagues, with an educational trace from [employer]. Physical exam (Primary Care) Vital Signs: Last Vital Signs Pulse 64 12/11/23 14:38 BP 148/90 H 12/11/23 14:38 Pulse Ox 99 12/11/23 14:38 Oxygen Delivery Method Room Air 12/11/23 14:38 BMI result Body Mass Index 33.4 Tobacco/Smoking Status: Tobacco use Status Tobacco use date assessed 12/11/23 12/11/23 14:39 Patient Tobacco Use Status Former Tobacco user 12/11/23 14:39 Tobacco use type Cigarette 12/11/23 14:39 e-Cigarette/Vaping Use Never Used 12/11/23 14:39 Thrive Assessment: Date of Thrive Assessment Date Thrive assessed 12/11/23 12/11/23 14:39 Const General: alert; No acute distress Eyes Conjunctivae: conjunctivae normal Resp Auscultation: clear to auscultation bilaterally Cardio Rate: regular rate Rhythm: regular rhythm GI Inspection: Yes normal to inspection Extrem General: Yes normal to inspection and No edema Assessment and Plan Assessment & Plan (1) Hypokalemia: Code(s): E87.6 - Hypokalemia Plan: Advised repeat testing. Patient was told to discontinue hydrochlorothiazide! (2) Recurrent major depression: Comment: Declined referral for counseling February 2023 Code(s): F33.9 - Major depressive disorder, recurrent, unspecified Plan: Stable for now (3) GERD (gastroesophageal reflux disease): Code(s): K21.9 - Gastro-esophageal reflux disease without esophagitis Plan: Avoid the foods that causes that usually spicy foods, tomato products, juices, coffee, soda and foods that your sensitive to. After eating do not lie down, allow 3-4 hours before in lie down. And keep the head of bed above 30 degrees to avoid the acid from going up. (4) Hypertension: Code(s): I10 - Essential (primary) hypertension Plan: Continue with lisinopril 40 mg once a day and amlodipine 5 mg once a day. Reminded that the amlodipine is 5 mg once a day and take lisinopril 40 mg once a day. (5) Obesity (BMI 30-39.9): Code(s): E66.9 - Obesity, unspecified Plan: Diet and exercise (6) Hypercholesterolemia: Code(s): E78.00 - Pure hypercholesterolemia, unspecified Plan: Avoid fried foods, chicken skin, eggs, butter margarine, pastries and meat. Be it pork or beef they have a lot of cholesterol LDL goal of less than 130 and triglyceride of less than 150 patient on rosuvastatin 5 mg once a day. Reminded patient about rosuvastatin into take it regularly and retest cholesterol in 3 months. (7) Impaired glucose tolerance: Code(s): R73.02 - Impaired glucose tolerance (oral) Plan: Decrease the amount of carbohydrate intake, pasta, bread, rice and potatoes are all sugar and that is aside from all the sweet stuff, remember that fruits are good but they are Sweet also. Orders: Orders Comprehensive Met. Panel 3 Months E87.6 - Hypokalemia Lipid Panel 3 Months E78.00 - Pure hypercholesterolemia, unspecified Medications: Refilled rosuvastatin 5 mg PO DAILY 90 tabs 2RF 30 days E78.00 - Pure hypercholesterolemia, unspecified Coding Level of Care Code Est Pt Level 4 (84178) Diagnoses Hypokalemia E87.6 Recurrent major depression F33.9 GERD (gastroesophageal reflux disease) K21.9 Hypertension I10 Obesity (BMI 30-39.9) E66.9 Hypercholesterolemia E78.00 Impaired glucose tolerance R73.02
== END 2023-12-11 15:06 | disposition home or self-care (01) ==
PROVIDERS: PCP Internal Medicine; Visit Provider Internal Medicine
DX: E87.6 Hypokalemia (principal); F33.9 Major depressive disorder, recurrent, unspecified; E66.9 Obesity, unspecified; Z68.33 Body mass index [BMI] 33.0-33.9, adult; K21.9 Gastro-esophageal reflux disease without esophagitis; I10 Essential (primary) hypertension; E78.00 Pure hypercholesterolemia, unspecified; R73.02 Impaired glucose tolerance (oral)
CPT/HCPCS: 99214

== ENCOUNTER 2023-12-21 08:07 | Outpatient (REF) | payer OTHER, SELFPAY | END 2023-12-21 08:08 | disposition home or self-care (01) | LOC: HO.MAMMO 08:07 | PROVIDERS: PCP Internal Medicine; Visit Provider Internal Medicine | DX: Z12.31 Encounter for screening mammogram for malignant neoplasm of breast (principal) | CPT/HCPCS: 77063; 77067 ==

== ENCOUNTER → 2023-12-21 08:45 | Outpatient (BNV) | payer OTHER, SELFPAY | PROVIDERS: PCP Internal Medicine; Visit Provider Radiology Diagnostic Radiology | DX: Z12.31 Encounter for screening mammogram for malignant neoplasm of breast (principal) | CPT/HCPCS: 77063; 77067 ==

== ENCOUNTER 2024-03-11 07:20 | Outpatient (REF) | payer MEDICARE, SELFPAY ==
[2024-03-11 08:39] LABS: Alanine Aminotransferase 33 U/L (0-31); Albumin Level 4.1 g/dL (3.5-5.0); Alkaline Phosphatase 76 U/L (39-117); Anion Gap 9 (12-20); Aspartate Amino Transferase 26 U/L (5-31); Bilirubin Total 0.5 mg/dL (0.0-1.0); Blood Urea Nitrogen 18 mg/dL (9-16); Calcium 9.1 mg/dL (8.4-10.2); Carbon Dioxide 27 mmol/L (22-29); Chloride 110 mmol/L (96-108); Cholesterol 179 mg/dL (<200); Estimated Glomerular Filt Rate > 60; Glucose Random 96 mg/dL (60-115); HDL Cholesterol 45 mg/dL (>40); LDL Cholesterol Calculated 110 mg/dL (<100); Potassium 3.5 mmol/L (3.3-5.1); Sodium 142 mmol/L (135-145); Total Protein 7.2 g/dL (6.5-8.0); Triglycerides 120 mg/dL (<150)
== END 2024-03-11 07:21 | disposition home or self-care (01) ==
LOC: HO.LAB 07:20
PROVIDERS: PCP Internal Medicine; Visit Provider Internal Medicine
DX: E87.6 Hypokalemia (principal); E78.00 Pure hypercholesterolemia, unspecified
CPT/HCPCS: 36415; 80053; 80061

== ENCOUNTER 2024-03-18 14:06 | Outpatient (AMB) | payer MEDICARE, SELFPAY ==
[2024-03-18 14:07] VITALS: BP 162/88; PULSE 68; O2SAT 96; BMI 34.0
--- NOTE | 2024-03-18 14:07 | A.OFFPC_ITS ---
Vital Signs 03/18/24 14:07 Height 5 ft 1 in Weight 180 lb BMI 34.0 BP 162/88 H Blood Pressure Location Lt brachial Position Sitting Pulse 68 Pulse Source Pulse Oximeter Pulse Oximetry (%) 96 Oxygen Delivery Method Room Air Intake Visit Reasons: Hypertension Intake Note: Patient is here to follow up on HTN Allergies hydrochlorothiazide Adverse Reaction (Intermediate, Verified 03/18/24 14:07) hypokalemia lisinopril Adverse Reaction (Intermediate, Verified 03/18/24 14:07) leg cramps atorvastatin [Lipitor] Adverse Reaction (Mild, Verified 03/18/24 14:07) joint cramps pravastatin Adverse Reaction (Mild, Verified 03/18/24 14:07) body aches simvastatin Adverse Reaction (Mild, Verified 03/18/24 14:07) body aches Medication List - Last Reconciled 03/18/24 by Qamar Marcus MD blood pressure monitor (Blood Pressure Kit) As directed lisinopril 40 mg PO DAILY 30 days metoprolol succinate ER 25 mg PO DAILY rosuvastatin 5 mg PO DAILY 30 days tolterodine ER (Detrol LA) 4 mg PO DAILY Tobacco use date assessed: 03/18/24 Fall risk assessment: No Falls in past year Last assessed Fall Risk: 03/18/24 Dental Screening Dental Screen Date: 12/11/23 HPI Hypertension HPI Details 64-year-old obese female with a history of impaired glucose tolerance hypertension hypercholesterolemia GERD and recurrent major depression last seen in November 2023. Colonoscopy is up-to-date September 2022 mammogram is up-to-date. [facility] Medical History (Updated 12/01/23 @ 18:48 by Qamar Marcus MD) Impaired glucose tolerance Allergic rhinitis Migraine Hypercholesterolemia Obesity (BMI 30-39.9) Recurrent major depression Fatty liver GERD (gastroesophageal reflux disease) Hypertension Vitamin D deficiency Surgical History History of colonoscopy History of section S/P WAYNE-BSO (total abdominal hysterectomy and bilateral salpingo-oophorectomy) Family History Sister Myocardial infarct Paternal Grandfather Prostate CA Brother Colon cancer Substance abuse Social History Housing: House Alcohol intake: never Patient Tobacco Use Status: Former Tobacco user Tobacco use type: Cigarette Years Smoked: 1999 quit e-Cigarette/Vaping Use: Never Used Second Hand Smoke Exposure: No Current occupational status: employed Cognitive needs: No Hearing needs: No Vision needs: Yes Questionnaire Thrive Questionnaire Date Thrive assessed: 03/18/24 I am a: Patient What is your living situation today?: I have a steady place to live Within the past 12 months, did the food you bought not last and you didn't have the money to get more?: Never true Within the past 12 months, did you worry whether your food would run out before you got money to buy more?: Never true Do you have trouble paying for medicines?: No Do you have trouble getting transportation to medical appointments?: No Do you have trouble paying your heating and electricity bill?: No Do you have trouble taking care of your child, family member or friend?: No Do you have trouble with day-to-day activities such as bathing, preparing meals, shopping, managing finances, etc.?: No Are you currently unemployed and looking for a job?: No Are you interested in more education?: No Please select the resources that you would like help with: None Currently or been in a relationship where the following occur: no concerns reported THRIVE Score: 0 AUDIT C Alcohol Use Questionnaire (AUDIT-C) 1. How often do you have a drink containing alcohol?: Never 3. How often do you have six or more drinks on one occasion?: Never Total Score: 0 MOLINA-7 AMB Questionnaire MOLINA-7 Date MOLINA - 7 assessed: 12/11/23 Source: Developed by Drs. Rodger Butcher, Miri Lee, Ellis Upton and colleagues, with an educational trace from [employer]. Physical exam (Primary Care) Vital Signs: Last Vital Signs Pulse 68 03/18/24 14:07 BP 162/88 H 03/18/24 14:07 Pulse Ox 96 03/18/24 14:07 Oxygen Delivery Method Room Air 03/18/24 14:07 BMI result Body Mass Index 34.0 Tobacco/Smoking Status: Tobacco use Status Tobacco use date assessed 03/18/24 03/18/24 14:09 Patient Tobacco Use Status Former Tobacco user 03/18/24 14:09 Tobacco use type Cigarette 03/18/24 14:09 e-Cigarette/Vaping Use Never Used 03/18/24 14:09 Thrive Assessment: Date of Thrive Assessment Date Thrive assessed 03/18/24 03/18/24 14:09 Currently or been in a relationship where the following occur: no concerns reported Const General: alert; No acute distress Eyes Conjunctivae: conjunctivae normal Resp Auscultation: clear to auscultation bilaterally Cardio Rate: regular rate Rhythm: regular rhythm GI Inspection: Yes normal to inspection Extrem General: Yes normal to inspection and No edema Assessment and Plan Assessment & Plan (1) Hypokalemia: Code(s): E87.6 - Hypokalemia Plan: Resolved (2) Obesity (BMI 30-39.9): Code(s): E66.9 - Obesity, unspecified Plan: Diet and exercise (3) Hypercholesterolemia: Code(s): E78.00 - Pure hypercholesterolemia, unspecified Plan: Avoid fried foods, chicken skin, eggs, butter margarine, pastries and meat. Be it pork or beef they have a lot of cholesterol LDL goal of less than 130 and triglyceride of less than 150. Presently on rosuvastatin 5 mg once a day (4) GERD (gastroesophageal reflux disease): Code(s): K21.9 - Gastro-esophageal reflux disease without esophagitis Plan: Avoid the foods that causes that usually spicy foods, tomato products, juices, coffee, soda and foods that your sensitive to. After eating do not lie down, allow 3-4 hours before in lie down. And keep the head of bed above 30 degrees to avoid the acid from going up. (5) Hypertension: Code(s): I10 - Essential (primary) hypertension Plan: Continue with blood pressure medication. Decrease salt intake and exercise patient takes lisinopril 40 mg once a day and amlodipine 5 mg once a day but patient complains of leg swelling(mild). With the patient's still having a elevated blood pressure will change amlodipine to metoprolol 25 mg once a day and will have the follow-up in 2 months (6) Bilateral knee pain: Code(s): M25.561 - Pain in right knee; M25.562 - Pain in left knee Plan: Complains of more right knee pain right now had an x-ray done last year showing mild degenerative changes on the right. Patient has tried Voltaren gel but did not help will send in a script for meloxicam Orders: Orders XR knee standing BI Today M25.561 - Pain in right knee, M25.562 - Pain in left knee Medications: New metoprolol succinate ER 25 mg PO DAILY 30 tabs 4RF I10 - Essential (primary) hypertension meloxicam 7.5 mg PO DAILY 30 tabs 3RF M25.561 - Pain in right knee, M25.562 - Pain in left knee Discontinued amlodipine Discontinued Reason: Doctor's Order 5 mg PO DAILY 90 tabs 0RF I10 - Essential (primary) hypertension Coding Level of Care Code Est Pt Level 4 (03101) Diagnoses Hypokalemia E87.6 Obesity (BMI 30-39.9) E66.9 Hypercholesterolemia E78.00 GERD (gastroesophageal reflux disease) K21.9 Hypertension I10 Bilateral knee pain M25.561; M25.562
== END 2024-03-18 14:49 | disposition home or self-care (01) ==
PROVIDERS: PCP Internal Medicine; Visit Provider Internal Medicine
DX: I10 Essential (primary) hypertension (principal); E87.6 Hypokalemia; E78.00 Pure hypercholesterolemia, unspecified; K21.9 Gastro-esophageal reflux disease without esophagitis; M25.561 Pain in right knee; M25.562 Pain in left knee
CPT/HCPCS: 99214

== ENCOUNTER 2024-03-18 14:54 | Outpatient (REF) | payer MEDICARE, SELFPAY ==
--- NOTE | ~2024-03-18 | XR_ITS ---
EXAMINATION: XR KNEE AP STANDING CLINICAL INFORMATION: Pain in the right COMPARISON: 02/23/2023 TECHNIQUE: AP bilateral standing view of the knees was obtained. FINDINGS: No fracture or joint effusion. Alignment is anatomic. Joint spaces are maintained. No abnormal soft tissue calcification. XR/XR knee standing BI IMPRESSION: Normal knees.
== END 2024-03-18 14:55 | disposition home or self-care (01) ==
LOC: HO.XRAY 14:54
PROVIDERS: PCP Internal Medicine; Visit Provider Internal Medicine
DX: M25.561 Pain in right knee (principal); M25.562 Pain in left knee
CPT/HCPCS: 73565

== ENCOUNTER 2024-05-16 13:22 | Outpatient (AMB) | payer MEDICARE, SELFPAY ==
[2024-05-16 13:25] VITALS: BP 160/84; PULSE 92; O2SAT 96; BMI 34.0
--- NOTE | 2024-05-16 13:25 | A.OFFPC_ITS ---
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 Allergies hydrochlorothiazide Adverse Reaction (Intermediate, Verified 05/16/24 13:25) hypokalemia lisinopril Adverse Reaction (Intermediate, Verified 05/16/24 13:25) leg cramps atorvastatin [Lipitor] Adverse Reaction (Mild, Verified 05/16/24 13:25) joint cramps pravastatin Adverse Reaction (Mild, Verified 05/16/24 13:25) body aches simvastatin Adverse Reaction (Mild, Verified 05/16/24 13:25) body aches Medication List - Last Reconciled 05/16/24 by Qamar Marcus MD blood pressure monitor (Blood Pressure Kit) As directed lisinopril 40 mg PO DAILY 30 days meloxicam 7.5 mg PO DAILY metoprolol succinate ER 50 mg PO DAILY rosuvastatin 5 mg PO DAILY 30 days tolterodine ER 4 mg PO DAILY Tobacco use date assessed: 03/18/24 Fall risk assessment: No Falls in past year Last assessed Fall Risk: 05/16/24 Dental Screening Dental Screen Date: 12/11/23 HPI 2 month follow up HPI Details 64-year-old obese female with hyperchole sterolemia GERD hypertension and bilateral knee pain last seen in 03/09/2024. Patient's colonoscopy is up-to-date 10/09/2022 mammograms up-to-date. [facility] Medical History (Updated 12/01/23 @ 18:48 by Qamar Marcus MD) Impaired glucose tolerance Allergic rhinitis Migraine Hypercholesterolemia Obesity (BMI 30-39.9) Recurrent major depression Fatty liver GERD (gastroesophageal reflux disease) Hypertension Vitamin D deficiency Surgical History History of colonoscopy History of section S/P WAYNE-BSO (total abdominal hysterectomy and bilateral salpingo-oophorectomy) Family History Sister Myocardial infarct Paternal Grandfather Prostate CA Brother Colon cancer Substance abuse Social History Housing: House Alcohol intake: never Patient Tobacco Use Status: Former Tobacco user Tobacco use type: Cigarette Years Smoked: 1999 quit e-Cigarette/Vaping Use: Never Used Second Hand Smoke Exposure: No Current occupational status: employed Cognitive needs: No Hearing needs: No Vision needs: Yes Questionnaire Thrive Questionnaire Date Thrive assessed: 03/18/24 I am a: Patient What is your living situation today?: I have a steady place to live Within the past 12 months, did the food you bought not last and you didn't have the money to get more?: Never true Within the past 12 months, did you worry whether your food would run out before you got money to buy more?: Never true Do you have trouble paying for medicines?: No Do you have trouble getting transportation to medical appointments?: No Do you have trouble paying your heating and electricity bill?: No Do you have trouble taking care of your child, family member or friend?: No Do you have trouble with day-to-day activities such as bathing, preparing meals, shopping, managing finances, etc.?: No Are you currently unemployed and looking for a job?: No Are you interested in more education?: No Please select the resources that you would like help with: None THRIVE Score: 0 AUDIT C Alcohol Use Questionnaire (AUDIT-C) 1. How often do you have a drink containing alcohol?: Never 3. How often do you have six or more drinks on one occasion?: Never Total Score: 0 MOLINA-7 AMB Questionnaire MOLINA-7 Date MOLINA - 7 assessed: 12/11/23 Source: Developed by Drs. Rodger Butcher, Miri Lee, Ellis Upton and colleagues, with an educational trace from [employer]. Physical exam (Primary Care) Vital Signs: Last Vital Signs Pulse 92 05/16/24 13:25 BP 160/84 H 05/16/24 13:25 Pulse Ox 96 05/16/24 13:25 Oxygen Delivery Method Room Air 05/16/24 13:25 BMI result Body Mass Index 34.0 Tobacco/Smoking Status: Tobacco use Status Tobacco use date assessed 03/18/24 05/16/24 13:26 Patient Tobacco Use Status Former Tobacco user 05/16/24 13:26 Tobacco use type Cigarette 05/16/24 13:26 e-Cigarette/Vaping Use Never Used 05/16/24 13:26 Thrive Assessment: Date of Thrive Assessment Date Thrive assessed 03/18/24 05/16/24 13:26 Const General: alert; No acute distress Eyes Conjunctivae: conjunctivae normal Resp Auscultation: clear to auscultation bilaterally Cardio Rate: regular rate Rhythm: regular rhythm GI Inspection: Yes normal to inspection Extrem General: Yes normal to inspection and No edema Immunizations pneumoc 20-norma conj-dip cr(PF) 0.5 mL IM syringe Performing Provider: Qamar Marcus MD Performing Location: [facility] Administered by: CHE Mclaughlin on 05/16/24 14:25 Dose Route Admin Location Dispensed Lot Number Expiration Date NDC [employer] Nurse 0.5 mL IM Left Deltoid 0.5 mL [id number] 07/19/25 0224-6633-58 [employer] VIS Given Date VIS Provided VIS Publication Date 05/16/24 Single Vaccine 21 Eligibility Eligibility Date Funding Source Not [facility] Eligible 05/16/24 Private Assessment and Plan Assessment & Plan (1) Obesity (BMI 30-39.9): Code(s): E66.9 - Obesity, unspecified Plan: Diet and exercise (2) Hypercholesterolemia: Code(s): E78.00 - Pure hypercholesterolemia, unspecified Plan: Avoid fried foods, chicken skin, eggs, butter margarine, pastries and meat. Be it pork or beef they have a lot of cholesterol LDL goal of less than 130 and triglyceride of less than 150 on rosuvastatin 5 mg once a day (3) Hypertension: Code(s): I10 - Essential (primary) hypertension Plan: Continue with blood pressure medication. Decrease salt intake and exercise takes metoprolol 25 mg once a day lisinopril 40 mg once a day (4) GERD (gastroesophageal reflux disease): Code(s): K21.9 - Gastro-esophageal reflux disease without esophagitis Plan: Avoid the foods that causes that usually spicy foods, tomato products, juices, coffee, soda and foods that your sensitive to. After eating do not lie down, allow 3-4 hours before in lie down. And keep the head of bed above 30 degrees to avoid the acid from going up. Orders: Orders Pneumococcal 20 Immunization Today Z23 - Encounter for immunization Medications: New pneumoc 20-norma conj-dip cr(PF) 0.5 mL IM ONCE 0.5 mL 0RF Z23 - Encounter for immunization Changed From metoprolol succinate ER 25 mg PO DAILY 30 tabs 4RF I10 - Essential (primary) hypertension To metoprolol succinate ER 50 mg PO DAILY 30 tabs 4RF I10 - Essential (primary) hypertension Coding Level of Care Code Est Pt Level 4 (73218) Diagnoses Obesity (BMI 30-39.9) E66.9 Hypercholesterolemia E78.00 Hypertension I10 GERD (gastroesophageal reflux disease) K21.9
== END 2024-05-16 14:27 | disposition home or self-care (01) ==
PROVIDERS: PCP Internal Medicine; Visit Provider Internal Medicine
DX: E78.00 Pure hypercholesterolemia, unspecified (principal); Z68.34 Body mass index [BMI] 34.0-34.9, adult; E66.9 Obesity, unspecified; Z23 Encounter for immunization; I10 Essential (primary) hypertension; K21.9 Gastro-esophageal reflux disease without esophagitis
CPT/HCPCS: 90471; 90677; 99214

== ENCOUNTER 2024-10-08 10:05 | Outpatient (AMB) | payer MEDICARE, SELFPAY ==
[2024-10-08 10:12] VITALS: BP 160/90; PULSE 70; O2SAT 95; BMI 33.6
--- NOTE | 2024-10-08 10:12 | A.OFFPC_ITS ---
Vital Signs 10/08/24 10:12 10/08/24 10:36 Height 5 ft 1 in Weight 178 lb BMI 33.6 BP 160/90 H 164/84 H Blood Pressure Location Lt brachial Lt brachial Position Sitting Sitting Pulse 70 Pulse Source Pulse Oximeter Pulse Oximetry (%) 95 Oxygen Delivery Method Room Air Intake Visit Reasons: Physical Allergies hydrochlorothiazide Adverse Reaction (Intermediate, Verified 10/08/24 10:25) hypokalemia lisinopril Adverse Reaction (Intermediate, Verified 10/08/24 10:25) leg cramps atorvastatin [Lipitor] Adverse Reaction (Mild, Verified 10/08/24 10:25) joint cramps pravastatin Adverse Reaction (Mild, Verified 10/08/24 10:25) body aches simvastatin Adverse Reaction (Mild, Verified 10/08/24 10:25) body aches Medication List - Last Reconciled 10/08/24 by Monie Dill PA-C blood pressure monitor (Blood Pressure Kit) As directed lisinopril 40 mg PO DAILY 30 days meloxicam 7.5 mg PO DAILY metoprolol succinate ER 50 mg PO DAILY rosuvastatin 5 mg PO DAILY 30 days tolterodine ER 4 mg PO DAILY Tobacco use date assessed: 10/08/24 Fall risk assessment: No Falls in past year Last assessed Fall Risk: 10/08/24 Dental Screening Dental Screen Date: 12/11/23 Did you have a dental visit in the last 12 months?: No Did you have a dental problem in the last 6 months where you did not have access to dental care?: No Was dental information given to patient?: No HPI Physical HPI Details 64-year-old obese female with hyperchole sterolemia, GERD, hypertension, and bilateral knee pain last seen 05/16/[address] Marcus coming in for annual exam. Patient states she has been taking her blood pressures 1-2x per month and they have been high. She has been seeing eye doctor every year. Her mammogram was completed 12/2023 and colonoscopy 2021 with follow up in 10 years. Does not have routine paps due to hysterectomy. Denies any chest pain, shortness of breath, vision changes or headaches. [facility]LY [facility] Medical History Impaired glucose tolerance Allergic rhinitis Migraine Hypercholesterolemia Obesity (BMI 30-39.9) Recurrent major depression Fatty liver GERD (gastroesophageal reflux disease) Hypertension Vitamin D deficiency Surgical History History of colonoscopy History of section S/P WAYNE-BSO (total abdominal hysterectomy and bilateral salpingo-oophorectomy) Family History Sister Myocardial infarct Paternal Grandfather Prostate CA Brother Colon cancer Substance abuse Social History Housing: House Alcohol intake: never Patient Tobacco Use Status: Former Tobacco user Tobacco use type: Cigarette Years Smoked: 1999 quit e-Cigarette/Vaping Use: Never Used Second Hand Smoke Exposure: No Current occupational status: employed Cognitive needs: No Hearing needs: No Vision needs: Yes Questionnaire PHQ-9 Over the last 2 weeks, how often have you been bothered by any of the following problems? 1. Little interest or pleasure in doing things: not at all 2. Feeling down, depressed, or hopeless: not at all 3. Trouble falling or staying asleep, or sleeping too much: not at all 4. Feeling tired or having little energy: not at all 5. Poor appetite or overeating: not at all 6. Feeling bad about yourself - or that you are a failure or have let yourself or your family down: not at all 7. Trouble concentrating on things, such as reading the newspaper or watching television: not at all 8. Moving or speaking so slowly that other people could have noticed. Or the opposite - being so fidgety or restless that you have been moving around a lot more than usual: not at all 9. Thoughts that you would be better off or of hurting yourself in some way: not at all Total score: 0 Depression Screening Interpretation: Negative Depression Screening Done: Yes Source: Developed by Drs. Rodger Butcher, Miri Lee, Ellis Upton and colleagues, with an educational trace from [employer]. Thrive Questionnaire Date Thrive assessed: 03/18/24 I am a: Patient What is your living situation today?: I choose not to answer this question Within the past 12 months, did the food you bought not last and you didn't have the money to get more?: I choose not to answer this question Within the past 12 months, did you worry whether your food would run out before you got money to buy more?: I choose not to answer this question Do you have trouble paying for medicines?: I choose not to answer this question Do you have trouble getting transportation to medical appointments?: I choose not to answer this question Do you have trouble paying your heating and electricity bill?: I choose not to answer this question Do you have trouble taking care of your child, family member or friend?: I choose not to answer this question Do you have trouble with day-to-day activities such as bathing, preparing meals, shopping, managing finances, etc.?: I choose not to answer this question Are you currently unemployed and looking for a job?: I choose not to answer this question Are you interested in more education?: I choose not to answer this question Please select the resources that you would like help with: None Currently or been in a relationship where the following occur: I choose not to answer THRIVE Score: 0 AUDIT C Alcohol Use Questionnaire (AUDIT-C) 1. How often do you have a drink containing alcohol?: Never Total Score: 0 MOLINA-7 AMB Questionnaire MOLINA-7 Date MOLINA - 7 assessed: 12/11/23 Feeling nervous, anxious, or on edge: 0 = Not at all Not being able to stop or control worryin = Not at all Worrying too much about different things: 0 = Not at all Trouble relaxin = Not at all Being so restless that it is hard to sit still: 0 = Not at all Becoming easily annoyed or irritable: 0 = Not at all Feeling afraid as if something awful might happen: 0 = Not at all Total MOLINA-7 score (0-4 normal; 5-9 mild; 10-14 moderate; 15-21 severe): 0 Source: Developed by Drs. Rodger Butcher, Miri Lee, Ellis Upton and colleagues, with an educational trace from [employer]. MOLINA-7 Assessment Billing MOLINA-7 Assessment Tool: MOLINA-7 Assessment 62355 Review of Systems Const Denies body aches, Denies fatigue, Denies fever(s), Denies frequent falls, Reports headache(s) (rarely) and Denies weakness Eyes Reports no additional complaints and Denies change in vision ENT Denies dysphagia, Denies dizziness, Denies facial pain, Reports headache(s) (rarely), Denies nasal congestion and Denies odynophagia Card Denies chest pain, Denies syncope, Denies irregular heart rhythm, Denies leg edema, Denies lightheadedness and Denies dyspnea Resp Denies cough and Denies dyspnea GI Denies constipation, Denies dysphagia, Denies dyspepsia, Denies diarrhea, Denies nausea, Denies odynophagia and Denies vomiting Denies urinary frequency, Denies dysuria, Denies urinary hesitancy and Denies urinary urgency Musc Denies back pain and Denies myalgias Skin/Breast Reports system reviewed and no additional complaints, except as documented Neuro Denies dizziness, Denies syncope, Denies frequent falls, Reports headache(s) (rarely) and Denies weakness Psych Reports no additional complaints Endo Denies fatigue Physical exam (Primary Care) Vital Signs: Last Vital Signs Pulse 70 10/08/24 10:12 BP 164/84 H 10/08/24 10:36 Pulse Ox 95 10/08/24 10:12 Oxygen Delivery Method Room Air 10/08/24 10:12 BMI result Body Mass Index 33.6 Tobacco/Smoking Status: Tobacco use Status Tobacco use date assessed 10/08/24 10/08/24 10:17 Patient Tobacco Use Status Former Tobacco user 10/08/24 10:12 Tobacco use type Cigarette 10/08/24 10:12 e-Cigarette/Vaping Use Never Used 10/08/24 10:12 PHQ-9: PHQ-9 Score PHQ-9: Total score 0 10/08/24 10:58 Depression Screening Interpretation: Negative Thrive Assessment: Date of Thrive Assessment Date Thrive assessed 03/18/24 10/08/24 10:12 Currently or been in a relationship where the following occur: I choose not to answer Const General: cooperative, healthy appearing, comfortable and no acute distress Orientation/consciousness: patient oriented x3 HENMT Head: Yes normocephalic Ears: hearing grossly normal bilaterally, external ears normal, TM's normal bilaterally and EAC's normal General nose exam: Normal external nose present Face and sinus: Yes normal facial exam and Yes sinuses nontender Mouth: Normal oral and palatal mucosa present and tongue normal Throat: Yes posterior oropharynx normal Eyes General: appearance normal, both eyes and all related structures Conjunctivae: conjunctivae normal Pupils: Equal, round and reactive pupils present EOM: EOMs intact bilaterally and No Nystagmus present Neck Neck: Yes normal visual inspection, Yes full ROM and Yes no lymphadenopathy Chest Chest palpation & inspection: normal inspection of the chest Resp Effort & Inspection: normal respiratory effort Auscultation: clear to auscultation bilaterally, no crackles, no rales, no rhonchi, no wheezes and breath sounds present Cardio Rate: regular rate Rhythm: regular rhythm Peripheral pulses: radial pulses present and dorsalis pedis present GI Inspection: Yes normal to inspection and No Abdominal wall edema Palpation (GI): Soft to palpation, not firm and nontender Auscultation: normal bowel sounds Rectal Exam - Female: deferred General: Yes no CVA tenderness Back/Spine/Pelvis Back: no CVA tenderness Skin General skin exam: no rashes or lesions noted Neuro General: patient oriented x3 Cranial nerves: Yes Equal, round and reactive pupils present, Yes Midline tongue present, Yes Ability to bilaterally elevate shoulders present and No Nystagmus present Gait exam (Neuro): Normal gait present Extrem General: Yes normal to inspection, Yes full ROM, No no pedal edema and No edema Psych Speech and movement: Normal speech and movement present Affect: normal affect Insight: Good insight present (Psych) Judgement: Good judgement present (Psych) Office Procedures Flu Questionnaire Does the patient have a severe egg allergy?: No Does the patient have severe life threatening allergies?: No Does the patient have a fever or illness today?: No Has the patient ever had Guillain-[place] Syndrome?: No Has the patient ever had any past reaction to a flu shot?: No Immunizations Fluarix Triv [id number] (PF) 45 mcg (15 mcg x 3)/0.5 mL IM syringe Performing Provider: Monie Dill PA-C [facility] Administered by: CHE Hillman on 10/08/24 10:57 Dose Route Admin Location Dispensed Lot Number Expiration Date [facility] Able Bodied Watchman 0.5 mL IM Left Deltoid 0.5 mL [id number] 05/19/25 [id number] Door 6 VIS Given Date VIS Provided VIS Publication Date 10/08/24 Single Vaccine 21 Eligibility Eligibility Date Funding Source Not [facility] Eligible 10/08/24 Private Coding Level of Care Code Est Pt Prev Care >65y(50638) Diagnoses Annual physical exam Z00.00 Breast cancer screening by mammogram Z12.31 Tubular adenoma of colon D12.6 Impaired glucose tolerance R73.02 Hypercholesterolemia E78.00 Obesity (BMI 30-39.9) E66.9 Recurrent major depression F33.9 GERD (gastroesophageal reflux disease) K21.9 Hypertension I10 Additional Codes MOLINA-7 Assessment Billing - MOLINA-7 Assessment Tool: MOLINA-7 Assessment 84804 ([id number]) Assessment & Plan Assessment & Plan (1) Annual physical exam: Code(s): Z00.00 - Encounter for general adult medical examination without abnormal findings Category: Medical Plan: Patient is up to date on all recommended routine screenings and vaccinations for her age. Bone density ordered. Blood work up to date. (2) Breast cancer screening by mammogram: Code(s): Z12.31 - Encounter for screening mammogram for malignant neoplasm of breast Category: Medical Plan: Completed 12/2023 follow up in one year. (3) Tubular adenoma of colon: Code(s): D12.6 - Benign neoplasm of colon, unspecified Category: Medical Plan: Last colonoscopy completed 2021 follow up in 10 years. (4) Impaired glucose tolerance: Code(s): R73.02 - Impaired glucose tolerance (oral) Category: Medical Plan: Decrease the amount of carbohydrates such as pasta, bread, rice, and potatoes and limit the amount of sweets. Although fruits are generally healthy they should be eaten in moderation as they are still high in sugar. (5) Hypercholesterolemia: Code(s): E78.00 - Pure hypercholesterolemia, unspecified Category: Medical Plan: Avoid foods that are high in cholesterol such as red meat, fried foods, eggs and baked goods. Triglyceride goal of less than 150 and LDL goal of less than 100. (6) Obesity (BMI 30-39.9): Code(s): E66.9 - Obesity, unspecified Category: Medical Plan: Healthy diet and regular exercise is encouraged. (7) Recurrent major depression: Comment: Declined referral for counseling February 2023 Code(s): F33.9 - Major depressive disorder, recurrent, unspecified Category: Medical Plan: Not currently on medication and declines referral. (8) GERD (gastroesophageal reflux disease): Code(s): K21.9 - Gastro-esophageal reflux disease without esophagitis Category: Medical Plan: Avoid trigger foods such as citrus, tomato products, soda, caffeine, spicy foods and other foods that may be irritating to your stomach. Avoid laying flat 3-4 hours after eating and elevate the head of the bed 30 degrees to prevent acid from moving into the esophagus. (9) Hypertension: Code(s): I10 - Essential (primary) hypertension Category: Medical Plan: Continue on current blood pressure medication. Avoid salt intake and encourage healthy diet and regular exercise. Patient states she is not on lisinopril 40 mg despite it being in her medication list. Blood pressure continues to be elevated both at and in the office we will start on losartan 25 mg and follow up in 6 weeks. Plan This note was constructed using voice recognition software. While every effort has been made to ensure accuracy and music intern, still areas may have been included sometimes these areas may affect the content or meeting of the given symptoms. Total time spent caring for the patient today was 30 minutes. This includes time spent before the visit reviewing the chart, time spent during the visit, and time spent after the visit and documentation. Orders: Orders Influenza [id number] Immunization Today Z23 - Encounter for immunization XR DEXA axial skeleton Today Z78.0 - Asymptomatic menopausal state Medications: New losartan 25 mg PO DAILY 30 tabs 1RF Discontinued lisinopril Discontinued Reason: Patient no longer taking 40 mg PO DAILY 30 days 30 tabs 3RF
[2024-10-08 10:36] VITALS: BP 164/84
== END 2024-10-08 11:01 | disposition home or self-care (01) ==
PROVIDERS: PCP Internal Medicine
DX: Z00.00 Encounter for general adult medical examination without abnormal findings (principal); F33.9 Major depressive disorder, recurrent, unspecified; E66.9 Obesity, unspecified; Z68.33 Body mass index [BMI] 33.0-33.9, adult; D12.6 Benign neoplasm of colon, unspecified; Z12.31 Encounter for screening mammogram for malignant neoplasm of breast; R73.02 Impaired glucose tolerance (oral); E78.00 Pure hypercholesterolemia, unspecified; K21.9 Gastro-esophageal reflux disease without esophagitis; I10 Essential (primary) hypertension

== ENCOUNTER → 2024-10-08 10:05 | Outpatient (BNVA) | payer MEDICARE, SELFPAY | PROVIDERS: PCP Internal Medicine | DX: Z00.00 Encounter for general adult medical examination without abnormal findings (principal); Z23 Encounter for immunization; D21.6 Benign neoplasm of connective and other soft tissue of trunk, unspecified; R73.02 Impaired glucose tolerance (oral); E78.00 Pure hypercholesterolemia, unspecified; E66.9 Obesity, unspecified; F33.9 Major depressive disorder, recurrent, unspecified; K21.9 Gastro-esophageal reflux disease without esophagitis; I10 Essential (primary) hypertension | CPT/HCPCS: 90471; 90656; 96127; 99397 ==

== ENCOUNTER 2024-10-28 07:51 | Emergency (ER) | payer MEDICARE, SELFPAY ==
--- NOTE | ~2024-10-28 | CT_ITS ---
EXAMINATION: CT angio chest PE protocol (accession [id number]), CT abdomen pelvis w IV con (accession [id number]) CLINICAL INFORMATION: left side lower pain COMPARISON: Chest radiograph January 04, 2019 TECHNIQUE: Prior to contrast administration, noncontrast localization images were obtained. Subsequently, multidetector volumetric imaging was performed from the thoracic inlet to below the diaphragms following the administration of 85 mL Omnipaque 350 intravenous contrast. This was followed by multidetector acquisition of the abdomen and pelvis. No contrast reaction reported Sagittal, coronal, and MIP oblique sagittal reformatted images were obtained on the CT workstation, uploaded to PACS, and reviewed. Total exam dose-length product 562 mGy-cm FINDINGS: QUALITY OF STUDY/CONTRAST BOLUS: Satisfactory. CHEST: CHEST WALL: Unremarkable. AXILLA: No lymphadenopathy. PULMONARY ARTERIES: No pulmonary embolism. MEDIASTINUM: Heart is normal in size. No mediastinal lymphadenopathy. No hilar lymphadenopathy. Mild coronary artery calcification. PLEURA: There is no pleural effusion. LUNGS: No suspicious pulmonary nodule. ABDOMEN AND PELVIS: ABDOMINAL AND PELVIC WALL: Unremarkable. LIVER AND BILIARY TREE: Focal fatty infiltration in the right lobe of the liver. GALLBLADDER: Unremarkable. PANCREAS: Unremarkable. SPLEEN: Unremarkable. ADRENAL GLANDS: Unremarkable. KIDNEYS AND URETERS: The kidneys are normal in size. No hydronephrosis. No nephrolithiasis. GASTROINTESTINAL TRACT: The large and small bowel are normal in caliber. VASCULAR: Unremarkable. LYMPH NODES: No lymphadenopathy. FREE FLUID: No free fluid. BLADDER: Unremarkable. PELVIC VISCERA: Unremarkable. OSSEOUS STRUCTURES: Unremarkable. CT/CT abdomen pelvis w IV con IMPRESSION: 1. No pulmonary embolism. 2. No acute findings in the abdomen or pelvis. VTE: negative. Electronically signed by: Brady Solomon MD 10/28/2024 11:41 AM [facility] [place]
--- NOTE | ~2024-10-28 | CT_ITS ---
EXAMINATION: CT angio chest PE protocol (accession [id number]), CT abdomen pelvis w IV con (accession [id number]) CLINICAL INFORMATION: left side lower pain COMPARISON: Chest radiograph January 04, 2019 TECHNIQUE: Prior to contrast administration, noncontrast localization images were obtained. Subsequently, multidetector volumetric imaging was performed from the thoracic inlet to below the diaphragms following the administration of 85 mL Omnipaque 350 intravenous contrast. This was followed by multidetector acquisition of the abdomen and pelvis. No contrast reaction reported Sagittal, coronal, and MIP oblique sagittal reformatted images were obtained on the CT workstation, uploaded to PACS, and reviewed. Total exam dose-length product 562 mGy-cm FINDINGS: QUALITY OF STUDY/CONTRAST BOLUS: Satisfactory. CHEST: CHEST WALL: Unremarkable. AXILLA: No lymphadenopathy. PULMONARY ARTERIES: No pulmonary embolism. MEDIASTINUM: Heart is normal in size. No mediastinal lymphadenopathy. No hilar lymphadenopathy. Mild coronary artery calcification. PLEURA: There is no pleural effusion. LUNGS: No suspicious pulmonary nodule. ABDOMEN AND PELVIS: ABDOMINAL AND PELVIC WALL: Unremarkable. LIVER AND BILIARY TREE: Focal fatty infiltration in the right lobe of the liver. GALLBLADDER: Unremarkable. PANCREAS: Unremarkable. SPLEEN: Unremarkable. ADRENAL GLANDS: Unremarkable. KIDNEYS AND URETERS: The kidneys are normal in size. No hydronephrosis. No nephrolithiasis. GASTROINTESTINAL TRACT: The large and small bowel are normal in caliber. VASCULAR: Unremarkable. LYMPH NODES: No lymphadenopathy. FREE FLUID: No free fluid. BLADDER: Unremarkable. PELVIC VISCERA: Unremarkable. OSSEOUS STRUCTURES: Unremarkable. CT/CT angio chest PE protocol IMPRESSION: 1. No pulmonary embolism. 2. No acute findings in the abdomen or pelvis. VTE: negative. Electronically signed by: Brady Solomon MD 10/28/2024 11:41 AM [facility] [place]
[2024-10-28 07:55] VITALS: BP 178/79; PULSE 73; RESP 20; TEMP 36.1; O2SAT 98; BMI 33.7
[2024-10-28 08:09] LABS: Basophils Percent Auto 0.4 % (0-2); Eosinophils Absolute Auto 0.1 X10*3/uL (0.0-0.4); Eosinophils Percent Auto 0.9 % (0-4); Hematocrit 42.2 % (37.0-47.0); Hemoglobin 14.6 g/dl (12.0-16.0); Imm Gran Abs Auto 0.01 X10*3/uL (0.00-0.03); Imm Gran Pct Auto 0.1 % (0.0-0.4); Lymphocytes Absolute Auto 1.3 X10*3/uL (1.2-4.9); Lymphocytes Percent Auto 19.2 % (20-40); MANUAL DIFF FLAG NO; Mean Corpuscular HGB Conc 34.6 g/dl (31.0-35.0); Mean Corpuscular Hemoglobin 29.8 pg (27.0-33.0); Mean Corpuscular Volume 86.1 fL (80.0-98.0); Mean Platelet Volume 9.5 fL (9.4-12.3); Monocytes Absolute Auto 0.5 X10*3/uL (0.1-1.2); Monocytes Percent Auto 7.3 % (2-11); Neutrophils Percent Auto 72.1 % (45-73); Platelet Count 274 X10*3/uL (160-400); Red Cell Distribution Width 13.2 % (11.0-16.0)
[2024-10-28 08:20] LABS: Appearance Urine Clear; Color Urine Yellow; Glucose Urine UA Negative (Negative); Leukocyte Esterase Urine Negative (Negative); Nitrite Urine Negative (Negative); Specific Gravity - Urine 1.025 (1.005-1.025); Urine Blood Negative (Negative); Urine Ketones Negative (Negative); Urine Protein Negative (Neg-Trace)
[2024-10-28 08:22] LABS: Alanine Aminotransferase 49 U/L (0-31); Albumin Level 4.4 g/dL (3.5-5.0); Alkaline Phosphatase 77 U/L (39-117); Anion Gap 12 (12-20); Aspartate Amino Transferase 39 U/L (5-31); Bilirubin Direct 0.2 mg/dL (0.0-0.5); Bilirubin Total 0.4 mg/dL (0.0-1.0); Blood Urea Nitrogen 17 mg/dL (9-16); Calcium 9.8 mg/dL (8.4-10.2); Carbon Dioxide 26 mmol/L (22-29); Chloride 105 mmol/L (96-108); Estimated Glomerular Filt Rate > 60; Glucose Random 115 mg/dL (60-115); Lipase 38 U/L (8-78); Potassium 4.7 mmol/L (3.3-5.1); Sodium 138 mmol/L (135-145); Total Protein 7.9 g/dL (6.5-8.0)
--- NOTE | 2024-10-28 08:28 | ED_ITS ---
HPI - Back Pain/Injury General Chief Complaint: Abdominal Pain Stated Complaint: Back pain/abd pain Time Seen by Provider: 10/28/24 08:07 Source: patient Mode of arrival: ambulatory Limitations: no limitations History of Present Illness HPI Narrative: pt presented c/o back pain left flank pain since Monday,denies fever/vomiting any systemic symptoms MD elicited complaint: back pain Onset (ago): day(s) (3) Timing: constant Severity: moderate Quality: burning and sharp Radiation: none Exacerbating factors: none Relieving factors: none Associated symptoms: denies other symptoms Related Data Previous Rx's ?Medication ?Instructions ?Recorded blood pressure monitor (Blood #1 ea 02/23/23 Pressure Kit) rosuvastatin 5 mg tablet 5 mg PO DAILY 30 days #90 tabs 12/11/23 meloxicam 7.5 mg tablet 7.5 mg PO DAILY #30 tabs 07/21/24 tolterodine 4 mg capsule,extended 4 mg PO DAILY #90 caps 10/06/24 release 24 hr losartan 25 mg tablet 25 mg PO DAILY #30 tabs 10/08/24 metoprolol succinate 50 mg 50 mg PO DAILY #30 tabs 10/25/24 tablet,extended release 24 hr oxycodone 5 mg tablet 5 mg PO Q6H PRN pain #15 tabs 10/28/24 Allergies Allergy/AdvReac Type Severity Reaction Status Date / Time hydrochlorothiazide AdvReac Intermediate hypokalemia Verified 10/28/24 07:57 lisinopril AdvReac Intermediate leg cramps Verified 10/28/24 07:57 atorvastatin [Lipitor] AdvReac Mild joint Verified 10/28/24 07:57 cramps pravastatin AdvReac Mild body aches Verified 10/28/24 07:57 simvastatin AdvReac Mild body aches Verified 10/28/24 07:57 Review of Systems 2 Constitutional: Constitutional: Reports no additional constitutional complaints ENT: Reports system reviewed and no additional complaints, except as documented Musculoskeletal: Musculoskeletal: Reports no additional musculoskeletal complaints PMFSH Past Medical History Attestation statement: The following information was validated with the patient. Medical History Impaired glucose tolerance Allergic rhinitis Migraine Hypercholesterolemia Obesity (BMI 30-39.9) Recurrent major depression Fatty liver GERD (gastroesophageal reflux disease) Hypertension Vitamin D deficiency Surgical History History of colonoscopy History of section S/P WAYNE-BSO (total abdominal hysterectomy and bilateral salpingo-oophorectomy) Family History Family History Sister Myocardial infarct Paternal Grandfather Prostate CA Brother Colon cancer Substance abuse Social History Social History Housing: House Alcohol intake: never Patient Tobacco Use Status: Former Tobacco user Tobacco use type: Cigarette Years Smoked: 2000 quit Smoked in Last 30 Days: No e-Cigarette/Vaping Use: Never Used Second Hand Smoke Exposure: No Use of substances other than those prescribed or required for medical reasons: No Advance Directives: No Advance Directives Information Provided: Yes Do you have a plan to hurt others: No Plan Current occupational status: employed Cognitive needs: No Hearing needs: No Vision needs: Yes Physical Exam 2 Vital Signs: Vital Signs: Last Vital Signs Temp 97.0 F 10/28/24 07:55 Pulse 64 10/28/24 10:28 Resp 13 10/28/24 10:28 BP 163/80 H 10/28/24 10:28 Pulse Ox 96 10/28/24 10:28 O2 Del Method Room Air 10/28/24 10:28 BMI result Body Mass Index 33.7 mild distress Const: General: cooperative Nutritional Appearance: well nourished O rientation/consciousness: oriented to person and oriented to time HEENT: Head: Yes normal to inspection Ears: hearing grossly normal bilaterally Face and sinus: Yes normal facial exam Mouth: Normal oral and palatal mucosa present Throat: Yes posterior oropharynx normal Neck: Neck: Yes normal visual inspection Thyroid: Thyroid normal Resp: Effort & Inspection: normal respiratory effort Auscultation: clear to auscultation bilaterally Cardio: Jugular venous distension: no JVD Rhythm: regular rhythm GI: Other: tenderness left flank Inspection: Yes normal to inspection Palpation (GI): Soft to palpation Auscultation: normal bowel sounds Skin: General skin exam: no rashes or lesions noted and elasticity normal L esions: no lesions Rashes: no rashes Hair: normal Neuro: General: oriented to person and oriented to time Course Reevaluation(s) Reevaluation #1: I re-examined the patient she is feeling better workup has been completed now CT scan of the abdomen and pelvis was negative labs normal she can be discharged home I spoke with the daughter as well both are comfortable with the plan of care Time: 12:53 Medications Administered Discontinued Medications Generic Name Dose Route Start Last Admin Trade Name Kian PRN Reason Stop Dose Admin Iohexol 85 ml 10/28/24 09:40 10/28/24 09:41 Iohexol 350 Mg/Ml 100 Ml Infus..Btl IV 10/28/24 09:41 85 ml ONCE ONE Administration Ketorolac Tromethamine 15 mg 10/28/24 10:53 10/28/24 11:35 Ketorolac Tromethamine 15 Mg/Ml Vial IVPUSH 10/28/24 10:54 15 mg ONCE ONE Administration Morphine Sulfate 4 mg 10/28/24 08:25 10/28/24 08:38 Morphine Sulfate 4 Mg/Ml Cartridge IVPUSH 10/28/24 08:26 4 mg ONCE ONE Administration Protocol Ondansetron HCl 4 mg 10/28/24 08:25 10/28/24 08:37 Ondansetron Hcl 4 Mg/2 Ml Vial IVPUSH 10/28/24 08:26 4 mg ONCE ONE Administration Medical Decision Making Medical Decision Making [facility] Narrative: presented with left flank pain will get labs ct Differential Diagnosis Differential Diagnoses: The differential diagnosis associated with the presentation includes kidney stones/UTI/Pyelo/mucloskeletal/dissection Admission/Observation Consideration of admission/observation: Escalation of care including admission/observation considered Lab Data [facility] Lab Attestation statement: I reviewed the patient's lab results. 10/28/24 08:04 10/28/24 08:04 Labs: Lab Results 10/28/24 10/28/24 Range/Units 08:04 08:12 WBC 7.0 (4.8-10.8) X10*3/uL RBC 4.90 (4.20-5.50) X10*6/uL Hgb 14.6 (12.0-16.0) g/dl Hct 42.2 (37.0-47.0) % MCV 86.1 (80.0-98.0) fL MCH 29.8 (27.0-33.0) pg MCHC 34.6 (31.0-35.0) g/dl RDW 13.2 (11.0-16.0) % Plt Count 274 (160-400) X10*3/uL MPV 9.5 (9.4-12.3) fL Immature Gran % (Auto) 0.1 (0.0-0.4) % Neut % (Auto) 72.1 (45-73) % Lymph % (Auto) 19.2 L (20-40) % [place] % (Auto) 7.3 (2-11) % Eos % (Auto) 0.9 (0-4) % Baso % (Auto) 0.4 (0-2) % Lymph # (Auto) 1.3 (1.2-4.9) X10*3/uL [place] # (Auto) 0.5 (0.1-1.2) X10*3/uL Eos # (Auto) 0.1 (0.0-0.4) X10*3/uL Baso # (Auto) 0.0 (0.0-0.2) X10*3/uL Abs Immat Gran (auto) 0.01 (0.00-0.03) X10*3/uL Absolute Neuts (auto) 5.0 (2.0-8.3) x10*3/uL Absolute Nucleated RBC 0.000 (0.0-0.012) X10*3/uL Nucleated RBC % (auto) 0.0 (0.0-0.2) /100WBC Sodium 138 (135-145) mmol/L Potassium 4.7 D (3.3-5.1) mmol/L Chloride 105 (96-108) mmol/L Carbon Dioxide 26 (22-29) mmol/L Anion Gap 12 (12-20) BUN 17 H (9-16) mg/dL Creatinine 0.73 (0.5-1.4) mg/dL Estim Creat Clear Calc 74.0 Estimated GFR > 60 Random Glucose 115 (60-115) mg/dL Calcium 9.8 D (8.4-10.2) mg/dL Total Bilirubin 0.4 (0.0-1.0) mg/dL Direct Bilirubin 0.2 (0.0-0.5) mg/dL AST 39 H (5-31) U/L ALT 49 H (0-31) U/L Alkaline Phosphatase 77 (39-117) U/L Total Protein 7.9 (6.5-8.0) g/dL Albumin 4.4 (3.5-5.0) g/dL Lipase 38 (8-78) U/L Urine Color Yellow Urine Appearance Clear Urine pH 5.0 (5.0-9.0) Ur Specific Gravel Switch 1.025 (1.005-1.025) Urine Protein Negative (Neg-Trace) mg/dL Urine Glucose (UA) Negative (Negative) mg/dL Urine Ketones Negative (Negative) mg/dL Urine Blood Negative (Negative) Urine Nitrite Negative (Negative) Ur Leukocyte Esterase Negative (Negative) Independent Interpretation I performed an independent interpretation of an: CT Scan Radiology Impression Discussion of test interpretation with radiology: I have reviewed the radiologist's reading. Radiologist Impression: GASTROINTESTINAL TRACT: The large and small bowel are normal in caliber. VASCULAR: Unremarkable. LYMPH NODES: No lymphadenopathy. FREE FLUID: No free fluid. BLADDER: Unremarkable. PELVIC VISCERA: Unremarkable. OSSEOUS STRUCTURES: Unremarkable. CT/CT abdomen pelvis w IV con IMPRESSION: 1. No pulmonary embolism. 2. No acute findings in the abdomen or pelvis. VTE: negative. Electronically signed by: Brady Solomon MD 10/28/2024 11:41 AM [facility] Dictated By: Brady Solomon MD Signed By: <Electronically signed by Brady Solomon MD in OV> 10/28/24 1141 Independent Historian daughter Prescription Management I considered prescription management with: Pain Medication Discharge Plan Discharge Clinical Impression: Acute flank pain Patient Disposition: Home, Self-Care Instructions: Flank Pain (ED) Additional Instructions: follow-up with your primary care physician who sent a prescription for pain medicine to your pharmacy in the [facility] Prescriptions: New oxycodone 5 mg tablet 5 mg PO Q6H PRN (Reason: pain) Qty: 15 0RF Rx Instructions: partial filing upon pt request; Partial Fill upon patient request. No Action meloxicam 7.5 mg tablet 7.5 mg PO DAILY Qty: 30 3RF tolterodine 4 mg capsule,extended release 24hr 4 mg PO DAILY Qty: 90 0RF metoprolol succinate 50 mg tablet extended release 24 hr 50 mg PO DAILY Qty: 30 1RF (DME) blood pressure monitor [Blood Pressure Kit] Kit See Rx Instructions .ROUTE .MEDSUPPLY Qty: 1 0RF Rx Instructions: As directed rosuvastatin 5 mg tablet 5 mg PO DAILY 30 Days Qty: 90 2RF losartan 25 mg tablet 25 mg PO DAILY Qty: 30 1RF Print Language: Uzbek
[2024-10-28] MEDS: ondansetron HCL 4 MG/2 ML VIAL IVPUSH (08:37)
[2024-10-28] MEDS: Morphine Sulfate 4 MG/ML CARTRIDGE IVPUSH (08:38)
[2024-10-28] MEDS: iohexoL 350 MG/ML 100 ML INFUS..BTL 85 ML IV (09:41)
[2024-10-28 10:28] VITALS: BP 163/80; PULSE 64; RESP 13; O2SAT 96
[2024-10-28] MEDS: Ketorolac Tromethamine 15 MG/ML VIAL IVPUSH (11:35)
[2024-10-28 13:32] VITALS: BP 163/80; PULSE 64; RESP 13; TEMP 37; O2SAT 96
== END 2024-10-28 13:33 | disposition home or self-care (01) ==
PROVIDERS: Emergency Provider Emergency Medicine; PCP Internal Medicine
DX: R10.32 Left lower quadrant pain (principal); M54.50 Low back pain, unspecified; Z79.899 Other long term (current) drug therapy; Z87.891 Personal history of nicotine dependence
CPT/HCPCS: 36415; 71275; 74177; 80048; 80076; 81003; 83690; 85025; 96374; 96375; 99284; J1885; J2270; J2405; Q9967

== ENCOUNTER 2024-11-19 09:13 | Outpatient (AMB) | payer MEDICARE, SELFPAY ==
[2024-11-19 09:19] VITALS: BP 130/84; PULSE 62; O2SAT 97; BMI 32.4
--- NOTE | 2024-11-19 09:19 | MHC.PC.OV ---
Vital Signs 11/19/24 09:19 11/19/24 09:45 Height 5 ft 1 in Weight 171 lb 4 oz BMI 32.4 BP 130/84 180/88 H Blood Pressure Location Lt brachial Lt brachial Position Sitting Sitting Pulse 62 Pulse Source Pulse Oximeter Pulse Oximetry (%) 97 Oxygen Delivery Method Room Air Intake Visit Reasons: f/u HTN Intake Note: Patient is here to follow up on HTN. Filler And Trimmer Required: No Helicopter Specialist: Not Required per policy Accompanied by: Self / Same As Patient Allergies hydrochlorothiazide Adverse Reaction (Intermediate, Verified 11/19/24 09:19) hypokalemia lisinopril Adverse Reaction (Intermediate, Verified 11/19/24 09:19) leg cramps atorvastatin [Lipitor] Adverse Reaction (Mild, Verified 11/19/24 09:19) joint cramps pravastatin Adverse Reaction (Mild, Verified 11/19/24 09:19) body aches simvastatin Adverse Reaction (Mild, Verified 11/19/24 09:19) body aches Medication List - Last Reconciled 11/19/24 by Monie Dill PA-C blood pressure monitor (Blood Pressure Kit) As directed gabapentin mg PO losartan 25 mg PO DAILY meloxicam 7.5 mg PO DAILY metoprolol succinate ER 50 mg PO DAILY oxycodone 5 mg PO Q6H PRN rosuvastatin 5 mg PO DAILY 30 days tolterodine ER 4 mg PO DAILY Tobacco use date assessed: 11/19/24 Fall risk assessment: No Falls in past year Last assessed Fall Risk: 11/19/24 Dental Screening Dental Screen Date: 12/11/23 HPI f/u HTN HPI Details 64-year-old female with past medical history hypercholesterolemia, GERD, hypertension in bilateral knee pain last seen September 2024 coming in for follow up.?In review of the notes patient was seen in [facility] 10/28/2024 for left flank pain CT abdomen and pelvis as well as labs were all within normal limits and patient was given oxycodone and discharged home. Patient has not been taking her blood pressure at home she took it 1-2 times in the last several months but does not have the log today. She was seen in urgent care a few weeks ago and diagnosed with shingles given valacyclovir and gabapentin she did return to urgent care as her pain persisted and was given another prescription for gabapentin but is now out of his prescription and continues to have pain. [facility] Medical History Impaired glucose tolerance Allergic rhinitis Migraine Hypercholesterolemia Obesity (BMI 30-39.9) Recurrent major depression Fatty liver GERD (gastroesophageal reflux disease) Hypertension Vitamin D deficiency Surgical History History of colonoscopy History of section S/P WAYNE-BSO (total abdominal hysterectomy and bilateral salpingo-oophorectomy) Family History Sister Myocardial infarct Paternal Grandfather Prostate CA Brother Colon cancer Substance abuse Social History Housing: House Alcohol intake: never Patient Tobacco Use Status: Former Tobacco user Tobacco use type: Cigarette Years Smoked: 2000 quit e-Cigarette/Vaping Use: Never Used Second Hand Smoke Exposure: No service: No Current occupational status: employed Cognitive needs: No Hearing needs: No Vision needs: Yes Questionnaire Thrive Questionnaire Date Thrive assessed: 10/08/24 I am a: Patient What is your living situation today?: I choose not to answer this question Within the past 12 months, did the food you bought not last and you didn't have the money to get more?: I choose not to answer this question Within the past 12 months, did you worry whether your food would run out before you got money to buy more?: I choose not to answer this question Do you have trouble paying for medicines?: I choose not to answer this question Do you have trouble getting transportation to medical appointments?: I choose not to answer this question Do you have trouble paying your heating and electricity bill?: I choose not to answer this question Do you have trouble taking care of your child, family member or friend?: I choose not to answer this question Do you have trouble with day-to-day activities such as bathing, preparing meals, shopping, managing finances, etc.?: I choose not to answer this question Are you currently unemployed and looking for a job?: I choose not to answer this question Are you interested in more education?: I choose not to answer this question Please select the resources that you would like help with: None Currently or been in a relationship where the following occur: I choose not to answer THRIVE Score: 0 MOLINA-7 AMB Questionnaire MOLINA-7 Date MOLINA - 7 assessed: 12/11/23 Source: Developed by Drs. Rodger Butcher, Miri Lee, Ellis Upton and colleagues, with an educational trace from [employer]. Review of Systems Const Denies body aches, Denies chills, Denies fever(s), Denies headache(s) and Denies poor appetite Eyes Reports no additional complaints ENT Denies dizziness and Denies headache(s) Card Denies chest pain, Denies syncope, Denies edema, Denies irregular heart rhythm, Denies lightheadedness and Denies dyspnea Resp Denies cough and Denies dyspnea GI Denies abdominal pain, Denies constipation, Denies diarrhea, Denies nausea and Denies vomiting Reports no additional complaints Musc Reports no additional complaints and Denies abnormal gait Skin/Breast Details: Painful rash on abdomen and back Neuro Denies abnormal gait, Denies dizziness, Denies syncope and Denies headache(s) Psych Reports no additional complaints Physical exam (Primary Care) Vital Signs: Last Vital Signs Pulse 62 11/19/24 09:19 BP 130/84 11/19/24 09:19 Pulse Ox 97 11/19/24 09:19 Oxygen Delivery Method Room Air 11/19/24 09:19 BMI result Body Mass Index 32.4 Tobacco/Smoking Status: Tobacco use Status Tobacco use date assessed 11/19/24 11/19/24 09:25 Patient Tobacco Use Status Former Tobacco user 11/19/24 09:25 Tobacco use type Cigarette 11/19/24 09:25 e-Cigarette/Vaping Use Never Used 11/19/24 09:25 Thrive Assessment: Date of Thrive Assessment Date Thrive assessed 10/08/24 11/19/24 09:25 Currently or been in a relationship where the following occur: I choose not to answer Const General: cooperative, healthy appearing, comfortable and no acute distress Orientation/consciousness: patient oriented x3 HENMT Head: Yes normocephalic Ears: hearing grossly normal bilaterally General nose exam: Normal external nose present Eyes General: appearance normal, both eyes and all related structures Conjunctivae: conjunctivae normal Neck Neck: Yes full ROM and Yes no lymphadenopathy Resp Effort & Inspection: normal respiratory effort Auscultation: clear to auscultation bilaterally, no crackles, no rales, no rhonchi and no wheezes Cardio Rate: regular rate Rhythm: regular rhythm Skin Other: Crusted rash on flank and back that follows a dermatomal pattern Neuro General: patient oriented x3 Gait exam (Neuro): Normal gait present Extrem General: Yes normal to inspection, Yes full ROM and No edema Psych Affect: normal affect Attitude: cooperative Insight: Good insight present (Psych) Judgement: Good judgement present (Psych) Coding Level of Care Code Est Pt Level 4 (25370) Diagnoses Impaired glucose tolerance R73.02 Hypercholesterolemia E78.00 Obesity (BMI 30-39.9) E66.9 Hypertension I10 Shingles B02.9 Assessment & Plan Assessment & Plan (1) Impaired glucose tolerance: Code(s): R73.02 - Impaired glucose tolerance (oral) Category: Medical Plan: Decrease the amount of carbohydrates such as pasta, bread, rice, and potatoes and limit the amount of sweets. Although fruits are generally healthy they should be eaten in moderation as they are still high in sugar. (2) Hypercholesterolemia: Code(s): E78.00 - Pure hypercholesterolemia, unspecified Category: Medical Plan: Avoid foods that are high in cholesterol such as red meat, fried foods, eggs and baked goods. Triglyceride goal of less than 150 and LDL goal of less than 130. Continue on rosuvastatin (3) Obesity (BMI 30-39.9): Code(s): E66.9 - Obesity, unspecified Category: Medical Plan: Healthy diet and regular exercise is encouraged. (4) Hypertension: Code(s): I10 - Essential (primary) hypertension Category: Medical Plan: Continue on current blood pressure medication and we will increase losartan to 50 mg as blood pressure is elevated in the office and at home.. Avoid salt intake and encourage healthy diet and regular exercise. We will follow up in 2 months and have nurse navigators follow up in 3 weeks. (5) Shingles: Code(s): B02.9 - Zoster without complications Category: Medical Plan: Patient was diagnosed with shingles at the urgent care completed course of valacyclovir as well as 1 course of gabapentin. She continues to have pain at night we will give gabapentin 100 mg for bedtime pain as well as lidocaine patches. Advised patient pain should improve over the next several weeks. Rash has completely crusted over and patient is no longer contagious. Plan This note was constructed using voice recognition software. While every effort has been made to ensure accuracy and tube drawing supervisor, still areas may have been included sometimes these areas may affect the content or meeting of the given symptoms. Total time spent caring for the patient today was 30 minutes. This includes time spent before the visit reviewing the chart, time spent during the visit, and time spent after the visit and documentation. Medications: New gabapentin 100 mg PO BEDTIME 20 caps 0RF lidocaine 5% leave on most painful area for up to 12 hrs 1 patch topical DAILY 30 ea 0RF losartan 50 mg PO DAILY 90 tabs 2RF Discontinued losartan Discontinued Reason: Patient no longer taking 25 mg PO DAILY 30 tabs 1RF
[2024-11-19 09:45] VITALS: BP 180/88
== END 2024-11-19 09:53 | disposition home or self-care (01) ==
PROVIDERS: PCP Internal Medicine
DX: R73.02 Impaired glucose tolerance (oral) (principal); E78.00 Pure hypercholesterolemia, unspecified; E66.9 Obesity, unspecified; Z68.32 Body mass index [BMI] 32.0-32.9, adult; I10 Essential (primary) hypertension; B02.9 Zoster without complications

== ENCOUNTER 2024-11-25 15:18 | Outpatient (AMB) | payer MEDICARE, SELFPAY ==
[2024-11-25 15:31] VITALS: BP 178/82; PULSE 78; O2SAT 96; BMI 31.6
--- NOTE | 2024-11-25 15:31 | A.OFFPC_ITS ---
Vital Signs 3 11/25/24 15:31 Height 5 ft 1 in Weight 167 lb BMI 31.6 BP 178/82 H Blood Pressure Location Lt brachial Position Sitting Pulse 78 Pulse Source Pulse Oximeter Pulse Oximetry (%) 96 Oxygen Delivery Method Room Air Intake Visit Reasons: ED follow up Allergies hydrochlorothiazide Adverse Reaction (Intermediate, Verified 11/25/24 15:32) hypokalemia lisinopril Adverse Reaction (Intermediate, Verified 11/25/24 15:32) leg cramps atorvastatin [Lipitor] Adverse Reaction (Mild, Verified 11/25/24 15:32) joint cramps pravastatin Adverse Reaction (Mild, Verified 11/25/24 15:32) body aches simvastatin Adverse Reaction (Mild, Verified 11/25/24 15:32) body aches Tobacco use date assessed: 11/25/24 Fall risk assessment: No Falls in past year Last assessed Fall Risk: 11/25/24 Dental Screening Dental Screen Date: 11/25/24 Did you have a dental visit in the last 12 months?: Yes Did you have a dental problem in the last 6 months where you did not have access to dental care?: No Was dental information given to patient?: Patient has dentist HPI ED follow up 2 HPI0 Details The patient is a 64-year-old female presenting with follow-up management for hypertension and herpes zoster. Hypertension management began with losartan 25 mg, which was later increased to 50 mg when the patient's blood pressure readings remained elevated, peaking at 218 mmHg systolic. The patient reports her blood pressure increased upon initiating the higher dosage. She is concurrently on metoprolol, originally at 50 mg, used for hypertension. Herpes zoster started on November 03, and the patient developed a rash subsequent to initial symptoms. She was prescribed valacyclovir, which she has completed, noting significant pain relief with gabapentin for nerve pain, dosed at one tablet thrice daily and three tablets at bedtime. She describes the lesion extending from the back to the chest area. There was a response to treatment, albeit with continued pain experienced. The patient has a history of hyperlipidemia with her last cholesterol test conducted in February of the previous year. Ongoing management includes lifestyle modifications and medications as prescribed. Discussion of salt intake indicates an awareness of dietary influences on hypertension, although detailed dietary habits were not extensively discussed during this visit. [facility] Medical History Impaired glucose tolerance Allergic rhinitis Migraine Hypercholesterolemia Obesity (BMI 30-39.9) Recurrent major depression Fatty liver GERD (gastroesophageal reflux disease) Hypertension Vitamin D deficiency Surgical History History of colonoscopy History of section S/P WAYNE-BSO (total abdominal hysterectomy and bilateral salpingo-oophorectomy) Family History Sister Myocardial infarct Paternal Grandfather Prostate CA Brother Colon cancer Substance abuse Social History Housing: House Alcohol intake: never Patient Tobacco Use Status: Former Tobacco user Tobacco use type: Cigarette Years Smoked: 1999 quit e-Cigarette/Vaping Use: Never Used Second Hand Smoke Exposure: No service: No Current occupational status: employed Cognitive needs: No Hearing needs: No Vision needs: Yes Questionnaire PHQ-9 Over the last 2 weeks, how often have you been bothered by any of the following problems? 1. Little interest or pleasure in doing things: not at all 2. Feeling down, depressed, or hopeless: not at all 3. Trouble falling or staying asleep, or sleeping too much: not at all 4. Feeling tired or having little energy: not at all 5. Poor appetite or overeating: not at all 6. Feeling bad about yourself - or that you are a failure or have let yourself or your family down: not at all 7. Trouble concentrating on things, such as reading the newspaper or watching television: not at all 8. Moving or speaking so slowly that other people could have noticed. Or the opposite - being so fidgety or restless that you have been moving around a lot more than usual: not at all 9. Thoughts that you would be better off or of hurting yourself in some way: not at all Total score: 0 Depression Screening Interpretation: Negative Depression Screening Done: Yes Source: Developed by Drs. Rodger Butcher, Miri Lee, Ellis Upton and colleagues, with an educational trace from [employer]. Thrive Questionnaire Date Thrive assessed: 11/25/24 AUDIT C Alcohol Use Questionnaire (AUDIT-C) 1. How often do you have a drink containing alcohol?: Never Total Score: 0 MOLINA-7 AMB Questionnaire MOLINA-7 Date MOLINA - 7 assessed: 11/25/24 Feeling nervous, anxious, or on edge: 0 = Not at all Not being able to stop or control worryin = Not at all Worrying too much about different things: 0 = Not at all Trouble relaxin = Not at all Being so restless that it is hard to sit still: 0 = Not at all Becoming easily annoyed or irritable: 0 = Not at all Feeling afraid as if something awful might happen: 0 = Not at all Total MOLINA-7 score (0-4 normal; 5-9 mild; 10-14 moderate; 15-21 severe): 0 Source: Developed by Drs. Rodger Butcher, Miri Lee, Ellis Upton and colleagues, with an educational trace from [employer]. MOLINA-7 Assessment Billing MOLINA-7 Assessment Tool: MOLINA-7 Assessment [id number] Physical exam (Primary Care) Vital Signs: Last Vital Signs Pulse 78 11/25/24 15:31 BP 178/82 H 11/25/24 15:31 Pulse Ox 96 11/25/24 15:31 Oxygen Delivery Method Room Air 11/25/24 15:31 BMI result Body Mass Index 31.6 Tobacco/Smoking Status: Tobacco use Status Tobacco use date assessed 11/25/24 11/25/24 15:40 Patient Tobacco Use Status Former Tobacco user 11/25/24 15:40 Tobacco use type Cigarette 11/25/24 15:40 e-Cigarette/Vaping Use Never Used 11/25/24 15:40 PHQ-9: PHQ-9 Score PHQ-9: Total score 0 11/25/24 15:40 Depression Screening Interpretation: Negative Thrive Assessment: Date of Thrive Assessment Date Thrive assessed 11/25/24 11/25/24 15:40 Const General: alert; No acute distress Eyes Conjunctivae: conjunctivae normal Resp Auscultation: clear to auscultation bilaterally Cardio Rate: regular rate Rhythm: regular rhythm GI Inspection: Yes normal to inspection Back/Spine/Pelvis Back/spine/pelvis image: 2 1. hyperpigmented group of scars on the lower throraacic area going to the L hip aREA TO THE llq abdomen, no open wounds Extrem General: Yes normal to inspection and No edema Coding Level of Care Code Est Pt Level 4 (17419) Diagnoses Primary hypertension I10 Hypertension type: primary hypertension GERD (gastroesophageal reflux disease) K21.9 Recurrent major depression F33.9 Impaired glucose tolerance R73.02 Hypercholesterolemia E78.00 Post herpetic neuralgia B02.29 Shingles B02.9 Additional Codes MOLINA-7 Assessment Billing - MOLINA-7 Assessment Tool: MOLINA-7 Assessment [id number] ([id number]) Assessment & Plan Assessment & Plan (1) Hypertension: Code(s): I10 - Essential (primary) hypertension Category: Medical Qualifiers: Hypertension type: primary hypertension Qualified Code(s): I10 - Essential (primary) hypertension Plan: losartan 50 mg making her more elevation of BP. (2) GERD (gastroesophageal reflux disease): Code(s): K21.9 - Gastro-esophageal reflux disease without esophagitis Category: Medical (3) Recurrent major depression: Comment: Declined referral for counseling February 2023 Code(s): F33.9 - Major depressive disorder, recurrent, unspecified Category: Medical (4) Impaired glucose tolerance: Code(s): R73.02 - Impaired glucose tolerance (oral) Category: Medical (5) Hypercholesterolemia: Code(s): E78.00 - Pure hypercholesterolemia, unspecified Category: Medical (6) Post herpetic neuralgia: Code(s): B02.29 - Other postherpetic nervous system involvement Category: Medical (7) Shingles: Comment: 11/03/2024 Code(s): B02.9 - Zoster without complications Category: Medical Plan - For Essential Hypertension: Adjust the medications; decrease losartan dosage to 25 mg due to elevated blood pressure on higher dose. Increase metoprolol to 100 mg to improve blood pressure control. Monitor for any symptoms of dizziness or other side effects, and child care counselor on reducing salt intake. - For Herpes Zoster: Continue management with gabapentin for neuropathic pain, providing a refill as discussed. Monitor for pain resolution and potential side effects of increased dosages. - For Hyperlipidemia: Plan to retest cholesterol levels after discussing with the patient, no specific changes in medication were discussed during this visit. Orders: Orders 2 Comprehensive Met. Panel Today E78.00 - Pure hypercholesterolemia, unspecified Thyroid Stimulating Hormone Today E78.00 - Pure hypercholesterolemia, unspecified Vitamin D 25-OH Total Today E78.00 - Pure hypercholesterolemia, unspecified Complete Blood Count Auto Diff Today E78.00 - Pure hypercholesterolemia, unspecified Lipid Panel Today E78.00 - Pure hypercholesterolemia, unspecified Free T4 (Free Thyroxine) Today E78.00 - Pure hypercholesterolemia, unspecified Hemoglobin A1c Today E78.00 - Pure hypercholesterolemia, unspecified Vitamin B12 and Folate Today E78.00 - Pure hypercholesterolemia, unspecified Medications: Changed 2 From gabapentin 100 mg PO BEDTIME 20 caps 0RF B02.29 - Other postherpetic nervous system involvement To gabapentin 100 mg orally in the am , noon and 6 pm and 3 pills (300 mg ) at bedtime; 180 caps 1RF B02.29 - Other postherpetic nervous system involvement From losartan 50 mg PO DAILY 90 tabs 2RF B02.29 - Other postherpetic nervous system involvement To losartan 25 mg PO DAILY 90 tabs 2RF B02.29 - Other postherpetic nervous system involvement From metoprolol succinate ER 50 mg PO DAILY 30 tabs 1RF I10 - Essential (primary) hypertension To metoprolol succinate ER 100 mg PO DAILY 90 tabs 1RF I10 - Essential (primary) hypertension
== END 2024-11-25 16:11 | disposition home or self-care (01) ==
PROVIDERS: PCP Internal Medicine; Visit Provider Internal Medicine
DX: I10 Essential (primary) hypertension (principal); K21.9 Gastro-esophageal reflux disease without esophagitis; F33.9 Major depressive disorder, recurrent, unspecified; R73.02 Impaired glucose tolerance (oral); E78.00 Pure hypercholesterolemia, unspecified; B02.29 Other postherpetic nervous system involvement; B02.9 Zoster without complications

== ENCOUNTER → 2024-11-25 15:18 | Outpatient (BNVA) | payer MEDICARE, SELFPAY | PROVIDERS: PCP Internal Medicine; Visit Provider Internal Medicine | DX: I10 Essential (primary) hypertension (principal); K21.9 Gastro-esophageal reflux disease without esophagitis; F33.9 Major depressive disorder, recurrent, unspecified; R73.02 Impaired glucose tolerance (oral); E78.00 Pure hypercholesterolemia, unspecified; B02.29 Other postherpetic nervous system involvement; B02.9 Zoster without complications | CPT/HCPCS: 96127; 99212 ==

== ENCOUNTER → 2024-12-24 11:00 | Outpatient (BNV) | payer MEDICARE, SELFPAY | PROVIDERS: PCP Internal Medicine; Visit Provider Internal Medicine | DX: Z12.31 Encounter for screening mammogram for malignant neoplasm of breast (principal) | CPT/HCPCS: 77063; 77067 ==

== ENCOUNTER → 2025-03-14 13:58 | Outpatient (BNVA) | payer MEDICARE, SELFPAY | PROVIDERS: PCP Internal Medicine ==

== ENCOUNTER 2025-04-02 12:51 | Outpatient (AMB) | payer MEDICARE, SELFPAY ==
[2025-04-02 12:57] VITALS: BP 178/92; PULSE 61; O2SAT 94; BMI 31.7
--- NOTE | 2025-04-02 12:57 | MHC.PC.OV ---
Vital Signs 04/02/25 12:57 Height 5 ft 1 in Weight 168 lb BMI 31.7 BP 178/92 H Blood Pressure Location Lt brachial Position Sitting Pulse 61 Pulse Source Pulse Oximeter Pulse Oximetry (%) 94 Oxygen Delivery Method Room Air Intake Visit Reasons: High BP Allergies hydrochlorothiazide Adverse Reaction (Intermediate, Verified 04/02/25 12:57) hypokalemia lisinopril Adverse Reaction (Intermediate, Verified 04/02/25 12:57) leg cramps atorvastatin [Lipitor] Adverse Reaction (Mild, Verified 04/02/25 12:57) joint cramps pravastatin Adverse Reaction (Mild, Verified 04/02/25 12:57) body aches simvastatin Adverse Reaction (Mild, Verified 04/02/25 12:57) body aches Medication List - Last Reconciled 04/02/25 by Qamar Marcus MD blood pressure monitor (Blood Pressure Kit) As directed gabapentin 100 mg orally in the am , noon and 6 pm and 3 pills (300 mg ) at bedtime; lidocaine 5% 1 patch topical DAILY losartan 50 mg PO DAILY meloxicam 7.5 mg PO DAILY metoprolol succinate ER 100 mg PO DAILY oxycodone 5 mg PO Q6H PRN rosuvastatin 5 mg PO DAILY 30 days tolterodine ER 4 mg PO DAILY Tobacco use date assessed: 11/25/24 Fall risk assessment: No Falls in past year Last assessed Fall Risk: 04/02/25 Dental Screening Dental Screen Date: 11/25/24 [facility] Medical History Impaired glucose tolerance Allergic rhinitis Migraine Hypercholesterolemia Obesity (BMI 30-39.9) Recurrent major depression Fatty liver GERD (gastroesophageal reflux disease) Hypertension Vitamin D deficiency Surgical History History of colonoscopy History of section S/P WAYNE-BSO (total abdominal hysterectomy and bilateral salpingo-oophorectomy) Family History Sister Myocardial infarct Paternal Grandfather Prostate CA Brother Colon cancer Substance abuse Social History Housing: House Alcohol intake: never Patient Tobacco Use Status: Former Tobacco user Tobacco use type: Cigarette Years Smoked: 1999 quit e-Cigarette/Vaping Use: Never Used Second Hand Smoke Exposure: No service: No Current occupational status: employed Cognitive needs: No Hearing needs: No Vision needs: Yes Questionnaire PHQ-9 Over the last 2 weeks, how often have you been bothered by any of the following problems? 1. Little interest or pleasure in doing things: not at all 2. Feeling down, depressed, or hopeless: not at all 3. Trouble falling or staying asleep, or sleeping too much: not at all 4. Feeling tired or having little energy: not at all 5. Poor appetite or overeating: not at all 6. Feeling bad about yourself - or that you are a failure or have let yourself or your family down: not at all 7. Trouble concentrating on things, such as reading the newspaper or watching television: not at all 8. Moving or speaking so slowly that other people could have noticed. Or the opposite - being so fidgety or restless that you have been moving around a lot more than usual: not at all 9. Thoughts that you would be better off or of hurting yourself in some way: not at all Total score: 0 Source: Developed by Drs. Rodger Butcher, Miri Lee, Ellis Upton and colleagues, with an educational trace from [employer]. Thrive Questionnaire Date Thrive assessed: 11/25/24 I am a: Patient What is your living situation today?: I have a steady place to live Within the past 12 months, did the food you bought not last and you didn't have the money to get more?: Never true Within the past 12 months, did you worry whether your food would run out before you got money to buy more?: Never true Do you have trouble paying for medicines?: No Do you have trouble getting transportation to medical appointments?: No Do you have trouble paying your heating and electricity bill?: No Do you have trouble taking care of your child, family member or friend?: No Do you have trouble with day-to-day activities such as bathing, preparing meals, shopping, managing finances, etc.?: No Are you currently unemployed and looking for a job?: No Are you interested in more education?: No Please select the resources that you would like help with: None Currently or been in a relationship where the following occur: I choose not to answer THRIVE Score: 0 AUDIT C Alcohol Use Questionnaire (AUDIT-C) 1. How often do you have a drink containing alcohol?: Never Total Score: 0 MOLINA-7 AMB Questionnaire MOLINA-7 Date MOLINA - 7 assessed: 11/25/24 Feeling nervous, anxious, or on edge: 0 = Not at all Not being able to stop or control worryin = Not at all Worrying too much about different things: 0 = Not at all Trouble relaxin = Not at all Being so restless that it is hard to sit still: 0 = Not at all Becoming easily annoyed or irritable: 0 = Not at all Feeling afraid as if something awful might happen: 0 = Not at all Total MOLINA-7 score (0-4 normal; 5-9 mild; 10-14 moderate; 15-21 severe): 0 Source: Developed by Drs. Rodger Butcher, Miri Lee, Ellis Upton and colleagues, with an educational trace from [employer]. Physical exam (Primary Care) Vital Signs: Last Vital Signs Pulse 61 04/02/25 12:57 BP 178/92 H 04/02/25 12:57 Pulse Ox 94 04/02/25 12:57 Oxygen Delivery Method Room Air 04/02/25 12:57 BMI result Body Mass Index 31.7 Tobacco/Smoking Status: Tobacco use Status Tobacco use date assessed 11/25/24 04/02/25 13:01 Patient Tobacco Use Status Former Tobacco user 04/02/25 13:01 Tobacco use type Cigarette 04/02/25 13:01 e-Cigarette/Vaping Use Never Used 04/02/25 13:01 PHQ-9: PHQ-9 Score PHQ-9: Total score 0 04/02/25 13:21 Thrive Assessment: Date of Thrive Assessment Date Thrive assessed 11/25/24 04/02/25 13:01 Currently or been in a relationship where the following occur: I choose not to answer Const General: alert; No acute distress Eyes Conjunctivae: conjunctivae normal Resp Auscultation: clear to auscultation bilaterally Cardio Rate: regular rate Rhythm: regular rhythm GI Inspection: Yes normal to inspection Extrem General: Yes normal to inspection and No edema Coding Level of Care Code Est Pt Level 4 (85013) Diagnoses Primary hypertension I10 Hypertension type: primary hypertension GERD (gastroesophageal reflux disease) K21.9 Obesity (BMI 30-39.9) E66.9 Hypercholesterolemia E78.00 Impaired glucose tolerance R73.02 Osteopenia M85.80 Assessment & Plan Assessment & Plan (1) Hypertension: Code(s): I10 - Essential (primary) hypertension Category: Medical Qualifiers: Hypertension type: primary hypertension Qualified Code(s): I10 - Essential (primary) hypertension Plan: Control the cholesterol, weight, blood pressure, patient is on losartan 25 mg once a day metoprolol 100 mg once a day (2) GERD (gastroesophageal reflux disease): Code(s): K21.9 - Gastro-esophageal reflux disease without esophagitis Category: Medical Plan: Avoid the foods that causes that usually spicy foods, tomato products, juices, coffee, soda and foods that your sensitive to. After eating do not lie down, allow 3-4 hours before in lie down. And keep the head of bed above 30 degrees to avoid the acid from going up. (3) Obesity (BMI 30-39.9): Code(s): E66.9 - Obesity, unspecified Category: Medical Plan: Diet and exercise (4) Hypercholesterolemia: Code(s): E78.00 - Pure hypercholesterolemia, unspecified Category: Medical Plan: Avoid fried foods, chicken skin, eggs, butter margarine, pastries and meat. Be it pork or beef they have a lot of cholesterol LDL goal of less than 130 and triglyceride of less than 150 patient on rosuvastatin 5 mg once a day patient needs blood work (5) Impaired glucose tolerance: Code(s): R73.02 - Impaired glucose tolerance (oral) Category: Medical Plan: Decrease the amount of carbohydrate intake, pasta, bread, rice and potatoes are all sugar and that is aside from all the sweet stuff, remember that fruits are good but they are Sweet also. (6) Osteopenia: Code(s): M85.80 - Other specified disorders of bone density and structure, unspecified site Category: Medical Plan History of Present Illness The patient is a 65-year-old female presenting with an acute problem and for follow-up management of her hypertension. Her medical history includes obesity, essential hypertension, gastroesophageal reflux disease, major depressive disorder, hypercholesterolemia, and impaired glucose tolerance. She is currently managed on losartan 25 mg and metoprolol 100 mg daily for her hypertension, with a plan to adjust the losartan dosage due to persistently high blood pressure. Her past blood work indicated an elevated blood sugar level and liver enzymes leading to a fatty liver diagnosis. Hypercholesterolemia is addressed with rosuvastatin, aiming to achieve an LDL target of less than 130 mg/dL and triglycerides of less than 150 mg/dL. Previously performed tests include a colon test in September 2022 and a mammogram in December 2024, but no recent bone density scan has been done despite reported leg pain. Furthermore, a prescription for urinary incontinence (dolteridine) is requested. The patient is mostly current with vaccines, having received recent shingles and tetanus vaccines and a pneumonia shot recently confirmed. Health Maintenance - Colonoscopy completed in September 2022. - Mammogram completed in December 2024. - No recent bone density scan; one has been requested due to reported leg pain. - Blood work shows elevated liver enzymes (ALT/AST) and borderline elevated blood glucose (115 mg/dL). - Vaccinations include shingles, tetanus, and recent pneumonia shot. - Discussion on diet emphasizing reduced sodium intake. Social History - The patient denies high sodium intake and is actively managing her weight. Review of Systems - Cardiovascular: Reports elevated blood pressure. - Gastrointestinal: Reports history of GERD, but controlled currently. - Metabolic: Reports history of hypercholesterolemia and impaired glucose tolerance. - Liver: Reports diagnosis of fatty liver. - Genitourinary: Reports urinary incontinence. - Musculoskeletal: Reports leg pain. Physical Exam Results - Labs: Elevated liver function tests (ALT/AST), elevated fasting blood glucose at 115 mg/dL. Plan The patient?s essential hypertension management now includes an increased dosage of losartan to 50 mg daily, with metoprolol maintained at 100 mg due to heart rate considerations. Monitoring for blood pressure and blood work will continue, especially regarding borderline glucose levels. For cholesterolemia, rosuvastatin remains unchanged, aiming for an LDL below 130 mg/dL. The fatty liver condition requires continued observation with potential dietary adjustments. The prescription for dolteridine has been refilled to manage urinary incontinence. The patient received review and confirmation on receiving appropriate vaccines, and a bone density scan is scheduled as part of routine health maintenance, given her leg pain report and missing recent evaluations. Patient was informed and verbally consented to the use of an ambient scribe for clinic note documentation during this visit. Discussion Notes I discussed with the patient the importance of managing her hypertension with a change in medication dose, specifically increasing losartan due to her recent readings. The necessity of continued monitoring of her blood sugar and liver enzyme levels was emphasized, and lifestyle modifications such as reduced sodium intake and sustained weight management are crucial. For hypercholesterolemia, the continuation of her current statin therapy was confirmed, with a focus on achieving target LDL levels. We reviewed her recent vaccinations and addressed her concerns about urinary incontinence by refilling her prescription. I recommended a bone density test due to her leg pain, to complete her health maintenance checks. Efficacy and potential side effects of all medications were discussed, along with the need for close follow-up appointments for reassessment. Patient Instructions - Increase losartan dose to 50 mg per day as directed for blood pressure control. - Continue taking metoprolol 100 mg per day. - Maintain your current cholesterol medication as per daily regimen. - Monitor blood pressure at home and report any substantial changes or concerns. - Follow a low-sodium diet and continue efforts for weight loss. - Refill and use dolteridine as prescribed for urinary problems. - Obtain the scheduled bone density scan when contacted. - Continue scheduled vaccinations and screenings. - Return for follow-up in a few months or sooner if symptoms worsen. Orders: Orders XR DEXA axial skeleton Today M81.0 - Age-related osteoporosis without current pathological fracture, M85.80 - Other specified disorders of bone density and structure, unspecified site Medications: Changed From losartan 25 mg PO DAILY 90 tabs 2RF B02.29 - Other postherpetic nervous system involvement To losartan 50 mg PO DAILY 30 tabs 2RF B02.29 - Other postherpetic nervous system involvement Refilled tolterodine ER 4 mg PO DAILY 90 caps 2RF N39.41 - Urge incontinence
--- OUTSIDE RECORDS SUMMARY | 2025-04-02 13:10 | XMS_ITS | Clinical Summary ---
Author Organization [address] [place] [address] [place] [phone] Phone Care Team Providers Care Blacking Machine Operator Name Role Phone Qamar Marcus MD Primary Care Provider [phone] Medications valACYclovir (VALTREX) 1 gram tablet Take 1 tablet (1,000 mg total) by mouth 3 (three) times a day. 10/29/2024 Active amLODIPine (NORVASC) 5 mg tablet TAKE 1 TABLET BY MOUTH EVERY DAY, NEED NEW INS. 02/28/2024 Active meloxicam (MOBIC) 7.5 mg tablet Take 1 tablet (7.5 mg total) by mouth 1 (one) time each day. 10/26/2024 Active losartan (COZAAR) 25 mg tablet Take 1 tablet (25 mg total) by mouth 1 (one) time each day. 10/08/2024 Active oxyCODONE (ROXICODONE) 5 mg immediate release tablet Take 1 tablet (5 mg total) by mouth every 6 (six) hours if needed. for pain Max Daily Amount: 20 mg 10/28/2024 Active rosuvastatin (CRESTOR) 5 mg tablet Take 1 tablet (5 mg total) by mouth 1 (one) time each day. 10/29/2024 Active gabapentin (NEURONTIN) 100 mg capsule Take 1 capsule (100 mg total) by mouth 3 (three) times a day AND 3 capsules (300 mg total) at bedtime. 180 each 11/10/2024 Active Social History Tobacco Use Types Packs/Day Years Used Date Smoking Tobacco: Never Assessed Comments Unknown Sex and Gender Information Value Date Recorded Sex Assigned at Not on file Legal Sex Female 9:20 AM EST Gender Identity Not on file Sexual Orientation Not on file Last Filed Vital Signs Vital Sign Reading Time Taken Comments Blood Pressure 170/64 11/10/2024 1:29 PM EST Pulse 62 11/10/2024 1:29 PM EST Temperature 36.5 ??C (97.7 ??F) 11/10/2024 1:29 PM ES T Respiratory Rate - - Oxygen Saturation 98% 11/10/2024 1:29 PM EST Inhaled Oxygen Concentration - - Weight - - Height - - Body Mass Index - - Plan of Treatment Health Maintenance Due Date Last Done Comments Breast Cancer Screening 1960 Zoster Vaccines (2 of 2) 04/23/2023 02/26/2023 COVID-19 Vaccine ( season) 2024 Colorectal Cancer Screening: Colonoscopy 11/10/2024 Depression Screening 11/10/2024 Falls Risk Assessment 11/10/2024 Hepatitis C Screening 11/10/2024 Medicare Annual Wellness Visit 11/10/2024 Osteoporosis Screening (Bone Density Screening) 11/10/2024 Social Influencers of Health Screening 11/10/2024 DTaP,Tdap,and Td Vaccines (2 - Td or Tdap) 02/23/2033 02/23/2023 RSV Immunization Adult Patients (1 - 1-dose 75+ series) 2034 Pneumococcal Vaccine: 50+ Years Completed 05/16/2024 Influenza Vaccine Completed 10/08/2024, , 09/28/2022, Additional history exists HIB Vaccines Aged Out No longer eligi ble based on patient's age to complete this topic HPV Vaccines Aged Out No longer eligi ble based on patient's age to complete this topic Hepatitis A Vaccines Aged Out No long er eligible based on patient's age to complete this topic Hepatitis B Vaccines Aged Out No long er eligible based on patient's age to complete this topic IPV Vaccines Aged Out No longer eligi ble based on patient's age to complete this topic MMR Vaccines Aged Out No longer eligi ble based on patient's age to complete this topic Meningococcal ACWY Vaccine Aged Out N o longer eligible based on patient's age to complete this topic Meningococcal B Vaccine Aged Out No l onger eligible based on patient's age to complete this topic RSV Immunization Patients Under 20 months Aged Out No longer eligible based on patient's age to complete this topic Varicella Vaccines Aged Out No longer eligible based on patient's age to complete this topic Insurance [employer] Care Teams Blacking Machine Operator Relationship Specialty Start Date End Date Qamar Marcus MD PCP - General Internal Medicine 11/10/24
== END 2025-04-02 13:30 | disposition home or self-care (01) ==
LOC: HO.HMCH 12:52
PROVIDERS: PCP Internal Medicine; Visit Provider Internal Medicine
DX: I10 Essential (primary) hypertension (principal); K21.9 Gastro-esophageal reflux disease without esophagitis; E66.9 Obesity, unspecified; Z68.31 Body mass index [BMI] 31.0-31.9, adult; E78.00 Pure hypercholesterolemia, unspecified; R73.02 Impaired glucose tolerance (oral); M85.80 Other specified disorders of bone density and structure, unspecified site

== ENCOUNTER → 2025-04-02 12:51 | Outpatient (BNVA) | payer MEDICARE, SELFPAY | PROVIDERS: PCP Internal Medicine; Visit Provider Internal Medicine | DX: I10 Essential (primary) hypertension (principal); K21.9 Gastro-esophageal reflux disease without esophagitis; E66.9 Obesity, unspecified; E78.00 Pure hypercholesterolemia, unspecified; R73.02 Impaired glucose tolerance (oral); M85.80 Other specified disorders of bone density and structure, unspecified site; F32.A Depression, unspecified; M81.0 Age-related osteoporosis without current pathological fracture; B02.29 Other postherpetic nervous system involvement; N39.41 Urge incontinence | CPT/HCPCS: 96127; 99212 ==

== ENCOUNTER → 2025-04-11 13:17 | Outpatient (BNVA) | payer MEDICARE, SELFPAY | PROVIDERS: PCP Internal Medicine ==

== ENCOUNTER 2025-05-02 13:50 | Outpatient (REF) | payer MEDICARE, SELFPAY ==
--- NOTE | ~2025-05-02 | MM_ITS ---
EXAMINATION: DXA BONE DENSITY AXIAL HISTORY: M81.0 - Age-related osteoporosis without current pathological fracture TECHNIQUE: VODECLIC Dual energy absorptiometry (DEXA) of the lumbar spine, total left hip, and femoral neck was performed. COMPARISON: Comparison is made with the prior examination dated 07/11/2019. FINDINGS: The bone mineral density of the lumbar spine is 0.946, corresponding to a T-score of -1.9, and a Z-score of -0.7. This is indicative of osteopenia. This represents a BMD change of -3.0% compared to the prior exam. This is statistically significant. The bone mineral density of the left total hip is 0.822, corresponding to a T-score of -1.5, and a Z-score of -0.5. This is indicative of osteopenia. This represents a BMD change of -5.2% compared to the prior exam. This is statistically significant. The bone mineral density of the left femoral neck is 0.741, corresponding to a T-score of -2.1, and a Z-score of -0.9. This is indicative of osteopenia. This represents a BMD change of -6.0% compared to the prior exam. FRACTURE RISK: The FRAX index suggests a ten year probability of major osteoporotic fracture of 6.3%, and of hip fracture 1.1%. MM/XR DEXA axial skeleton IMPRESSION: Based on bone mineral density, and according to World Health Organization (WHO) criteria, the diagnosis is consistent with osteopenia. All bone density values are in grams per centimeter squared (g/cm2). Statistically, 68% of repeat scans fall within 1 SD (+/- 0.010 g/cm2 for AP spine L1-L4) and 1 SD (+/- 0.012 g/cm2 for femur total) FRAX is a trademark of the [employer]'s [place] Met[employer] Disease, a World Health Organization (WHO) Collaborating Center. Electronically signed by: Rodger Longoria MD 05/02/2025 02:29 PM EDT
--- OUTSIDE RECORDS SUMMARY | 2025-05-02 13:54 | XMS_ITS | Clinical Summary ---
Author Organization [address] [place] [address] [place] [phone] Phone Care Team Providers Care Rubber Trimmer Name Role Phone Qamar Marcus MD Primary Care Provider Medications valACYclovir (VALTREX) 1 gram tablet Take [...] [employer] Care Teams Rubber Trimmer Relationship Specialty Start Date End Date Qamar Marcus MD PCP - General Internal Medicine 11/10/24
== END 2025-05-02 13:51 | disposition home or self-care (01) ==
LOC: HO.MAMMO 13:50
PROVIDERS: PCP Internal Medicine; Visit Provider Internal Medicine
DX: M81.0 Age-related osteoporosis without current pathological fracture (principal); M85.80 Other specified disorders of bone density and structure, unspecified site
CPT/HCPCS: 77080

== ENCOUNTER → 2025-05-02 14:00 | Outpatient (BNV) | payer MEDICARE, SELFPAY | PROVIDERS: PCP Internal Medicine; Visit Provider Radiology Diagnostic Radiology | DX: E28.39 Other primary ovarian failure (principal) | CPT/HCPCS: 77080 ==

== ENCOUNTER 2025-07-28 07:35 | Outpatient (REF) | payer MEDICARE, SELFPAY ==
--- OUTSIDE RECORDS SUMMARY | 2025-07-28 07:39 | XMS_ITS | Clinical Summary ---
Author Organization [address] [place] [address] [place] [phone] Phone Care Team Providers Care Business Administration Professor Name Role Phone Qamar Marcus MD Primary Care Provider [phone] Medications valACYclovir (VALTREX) 1 gram tablet Take [...] 62 11/10/2024 1:29 PM EST Temperature 36.5 C (97.7 F) 11/10/2024 1:29 PM EST Respiratory Rate - - Oxygen Saturation 98% 11/10/2024 1:29 PM EST Inhaled Oxygen Concentration - - Weight - - Height - - Body Mass Index - - Plan of Treatment Health Maintenance Due Date Last Done Comments Breast Cancer Screening 1960 Zoster Vaccines (2 of 2) 04/23/2023 02/26/2023 Colorectal Cancer Screening: Colonoscopy 11/10/2024 Falls Risk Assessment 11/10/2024 Hepatitis C Screening 11/10/2024 Medicare Annual Wellness Visit 11/10/2024 Osteoporosis Screening (Bone Density Screening) 11/10/2024 Social Influencers of Health Screening 11/10/2024 Depression Screening 11/20/2024 COVID-19 Vaccine ( season) 2025 Influenza Vaccine (#1) 2025 , 10/05/2023, 09/28/2022, Additional history exists DTaP,Tdap,and Td Vaccines (2 - Td or Tdap) 02/23/2033 02/23/2023 RSV Immunization Adult Patients (1 - 1-dose 75+ series) 2034 Pneumococcal Vaccine: 50+ Years Completed 05/16/2024 HIB Vaccines Aged Out No longer eligi [...] [employer] Care Teams Business Administration Professor Relationship Specialty Start Date End Date Qamar Marcus MD PCP - General Internal Medicine 11/10/24
[2025-07-28 07:52] LABS: MANUAL DIFF FLAG NO
[2025-07-28 08:27] LABS: Hematocrit 41.5 % (37.0-47.0); Hemoglobin 14.2 g/dl (12.0-16.0); Imm Gran Abs Auto 0.01 X10*3/uL (0.00-0.03); Imm Gran Pct Auto 0.2 % (0.0-0.4); Lymphocytes Absolute Auto 2.7 X10*3/uL (1.2-4.9); Mean Corpuscular HGB Conc 34.2 g/dl (31.0-35.0); Mean Corpuscular Hemoglobin 29.3 pg (27.0-33.0); Mean Corpuscular Volume 85.6 fL (80.0-98.0); NRBC Abs Auto 0.000 X10*3/uL (0.0-0.012); NRBC Pct Auto 0.0 /100WBC (0.0-0.2); Platelet Count 317 X10*3/uL (160-400); Red Blood Count 4.85 X10*6/uL (4.20-5.50); White Blood Count 6.6 X10*3/uL (4.8-10.8)
[2025-07-28 08:35] LABS: Hemoglobin A1C 134.4392 umol/L; Total Hemoglobin (HGBA1C) 3761.3496 umol/L
[2025-07-28 09:22] LABS: Alanine Aminotransferase 22 U/L (0-31); Albumin Level 4.5 g/dL (3.5-5.0); Alkaline Phosphatase 77 U/L (39-117); Anion Gap 11 (12-20); Aspartate Amino Transferase 29 U/L (5-31); Blood Urea Nitrogen 20 mg/dL (9-16); Calcium 8.9 mg/dL (8.4-10.2); Carbon Dioxide 25 mmol/L (22-29); Chloride 109 mmol/L (96-108); Cholesterol 247 mg/dL (<200); Estimated Glomerular Filt Rate > 60; HDL Cholesterol 49 mg/dL (>40); Potassium 4.2 mmol/L (3.3-5.1); Sodium 141 mmol/L (135-145); Total Protein 7.6 g/dL (6.5-8.0); Triglycerides 122 mg/dL (<150)
[2025-07-28 09:39] LABS: Free T4 (Free Thyroxine) 1.00 ng/dL (0.71-1.85); Thyroid Stimulating Hormone 2.73 uIU/mL (0.32-4.0)
[2025-07-28 09:51] LABS: Folate 8.3 ng/mL (> or = 4.0); Vitamin B12 502 pg/mL (200-900)
== END 2025-07-28 07:36 | disposition home or self-care (01) ==
LOC: HO.LAB 07:35
PROVIDERS: PCP Internal Medicine; Visit Provider Internal Medicine
DX: Z13.1 Encounter for screening for diabetes mellitus (principal); E78.00 Pure hypercholesterolemia, unspecified
CPT/HCPCS: 36415; 80053; 80061; 82306; 82607; 82746; 83036; 84439; 84443; 85025

== ENCOUNTER 2025-07-31 14:12 | Outpatient (AMB) | payer MEDICARE, SELFPAY ==
[2025-07-31 14:19] VITALS: BP 146/86; PULSE 66; TEMP 36.2; O2SAT 96; BMI 31.0
--- NOTE | 2025-07-31 14:24 | A.OFFPC_ITS ---
Vital Signs 07/31/25 14:19 Height 5 ft 1 in Weight 164 lb 2 oz BMI 31.0 BP 146/86 H Blood Pressure Location Lt brachial Position Sitting Pulse 66 Pulse Source Pulse Oximeter Temp 97.1 F Temp Source Temporal Artery Scan Pulse Oximetry (%) 96 Oxygen Delivery Method Room Air Intake Visit Reasons: Hypertension Allergies hydrochlorothiazide Adverse Reaction (Intermediate, Verified 07/31/25 14:22) hypokalemia lisinopril Adverse Reaction (Intermediate, Verified 07/31/25 14:22) leg cramps atorvastatin (Lipitor) Adverse Reaction (Mild, Verified 07/31/25 14:22) joint cramps pravastatin Adverse Reaction (Mild, Verified 07/31/25 14:22) body aches simvastatin Adverse Reaction (Mild, Verified 07/31/25 14:22) body aches Medication List - Last Reconciled 07/31/25 by Qamar Marcus MD blood pressure monitor (Blood Pressure Kit) As directed losartan 100 mg PO DAILY metoprolol succinate ER 150 mg (1.5 x 100 mg) PO DAILY 90 days rosuvastatin 5 mg PO DAILY 30 days tolterodine ER 4 mg PO DAILY Tobacco use date assessed: 07/31/25 Fall risk assessment: No Falls in past year Last assessed Fall Risk: 07/31/25 Dental Screening Dental Screen Date: 07/31/25 Did you have a dental visit in the last 12 months?: No Did you have a dental problem in the last 6 months where you did not have access to dental care?: No Was dental information given to patient?: Patient declined HPI Hypertension HPI Details 65-year-old obese female with impaired g lucose tolerance hypertension hypercholesterolemia GERD tubular adenoma of the colon with last colonoscopy September 2022 patient does have osteopenia also with last bone density inand April 2025. Last seen in March 2025. Patient's last blood work was done in July with normal blood count. Electrolytes are normal renal function is good blood sugar with a normal hemoglobin A1c normal liver function cholesterol though is very high at 2 174 vitamin-D low normal thyroid [facility] Medical History Impaired glucose tolerance Allergic rhinitis Migraine Hypercholesterolemia Obesity (BMI 30-39.9) Recurrent major depression Fatty liver GERD (gastroesophageal reflux disease) Hypertension Vitamin D deficiency Surgical History History of colonoscopy History of section S/P WAYNE-BSO (total abdominal hysterectomy and bilateral salpingo-oophorectomy) Family History Sister Myocardial infarct Paternal Grandfather Prostate CA Brother Colon cancer Substance abuse Social History Housing: House Alcohol intake: never Patient Tobacco Use Status: Former Tobacco user Tobacco use type: Cigarette Years Smoked: 1999 quit e-Cigarette/Vaping Use: Never Used Second Hand Smoke Exposure: No service: No Current occupational status: employed Cognitive needs: No Hearing needs: No Vision needs: Yes Questionnaire PHQ-9 Over the last 2 weeks, how often have you been bothered by any of the following problems? 1. Little interest or pleasure in doing things: not at all 2. Feeling down, depressed, or hopeless: not at all 3. Trouble falling or staying asleep, or sleeping too much: not at all 4. Feeling tired or having little energy: not at all 5. Poor appetite or overeating: not at all 6. Feeling bad about yourself - or that you are a failure or have let yourself or your family down: not at all 7. Trouble concentrating on things, such as reading the newspaper or watching television: not at all 8. Moving or speaking so slowly that other people could have noticed. Or the opposite - being so fidgety or restless that you have been moving around a lot more than usual: not at all 9. Thoughts that you would be better off or of hurting yourself in some way: not at all Total score: 0 Source: Developed by Drs. Rodger Butcher, Miri Lee, Ellis Upton and colleagues, with an educational trace from [employer]. Thrive Questionnaire Date Thrive assessed: 04/02/25 I am a: Patient What is your living situation today?: I have a steady place to live Within the past 12 months, did the food you bought not last and you didn't have the money to get more?: Never true Within the past 12 months, did you worry whether your food would run out before you got money to buy more?: Never true Do you have trouble paying for medicines?: No Do you have trouble getting transportation to medical appointments?: No Do you have trouble paying your heating and electricity bill?: No Do you have trouble taking care of your child, family member or friend?: No Do you have trouble with day-to-day activities such as bathing, preparing meals, shopping, managing finances, etc.?: No Are you currently unemployed and looking for a job?: No Are you interested in more education?: No Please select the resources that you would like help with: None Currently or been in a relationship where the following occur: I choose not to answer THRIVE Score: 0 AUDIT C Alcohol Use Questionnaire (AUDIT-C) 1. How often do you have a drink containing alcohol?: Never 3. How often do you have six or more drinks on one occasion?: Never Total Score: 0 MOLINA-7 AMB Questionnaire MOLINA-7 Date MOLINA - 7 assessed: 11/25/24 Feeling nervous, anxious, or on edge: 0 = Not at all Not being able to stop or control worryin = Not at all Worrying too much about different things: 0 = Not at all Trouble relaxin = Not at all Being so restless that it is hard to sit still: 0 = Not at all Becoming easily annoyed or irritable: 0 = Not at all Feeling afraid as if something awful might happen: 0 = Not at all Total MOLINA-7 score (0-4 normal; 5-9 mild; 10-14 moderate; 15-21 severe): 0 Source: Developed by Drs. Rodger Butcher, Miri Lee, Ellis Upton and colleagues, with an educational trace from [employer]. Physical exam (Primary Care) Vital Signs: Last Vital Signs Temp 97.1 F 07/31/25 14:19 Pulse 66 07/31/25 14:19 BP 146/86 H 07/31/25 14:19 Pulse Ox 96 07/31/25 14:19 Oxygen Delivery Method Room Air 07/31/25 14:19 BMI result Body Mass Index 31.0 Tobacco/Smoking Status: Tobacco use Status Tobacco use date assessed 07/31/25 07/31/25 14:25 Patient Tobacco Use Status Former Tobacco user 07/31/25 14:25 Tobacco use type Cigarette 07/31/25 14:25 e-Cigarette/Vaping Use Never Used 07/31/25 14:25 PHQ-9: PHQ-9 Score PHQ-9: Total score 0 07/31/25 14:25 Thrive Assessment: Date of Thrive Assessment Date Thrive assessed 04/02/25 07/31/25 14:25 Currently or been in a relationship where the following occur: I choose not to answer Const General: alert; No acute distress Eyes Conjunctivae: conjunctivae normal Resp Auscultation: clear to auscultation bilaterally Cardio Rate: regular rate Rhythm: regular rhythm GI Inspection: Yes normal to inspection Extrem General: Yes normal to inspection and No edema Coding Level of Care Code Est Pt Level 4 (61709) Complex EM visit Add On G2211 Diagnoses Impaired glucose tolerance R73.02 Hypercholesterolemia E78.00 Primary hypertension I10 Hypertension type: primary hypertension Assessment & Plan Assessment & Plan (1) Impaired glucose tolerance: Code(s): R73.02 - Impaired glucose tolerance (oral) Category: Medical Plan: Decrease the amount of carbohydrate intake, pasta, bread, rice and potatoes are all sugar and that is aside from all the sweet stuff, remember that fruits are good but they are Sweet also. (2) Hypercholesterolemia: Code(s): E78.00 - Pure hypercholesterolemia, unspecified Category: Medical Plan: Avoid fried foods, chicken skin, eggs, butter margarine, pastries and meat. Be it pork or beef they have a lot of cholesterol LDL goal of less than 130 and triglyceride of less than 150. On rosuvastatin 5 mg once a day (3) Hypertension: Code(s): I10 - Essential (primary) hypertension Category: Medical Qualifiers: Hypertension type: primary hypertension Qualified Code(s): I10 - Essential (primary) hypertension Plan: Continue with blood pressure medication. Decrease salt intake and exercise patient on metoprolol 100 mg once a day losartan 100 mg once a day did have problem with lisinopril and hydrochlorothiazide Medications: Changed From metoprolol succinate ER 100 mg PO DAILY 90 tabs 1RF I10 - Essential (primary) hypertension To metoprolol succinate ER 150 mg (1.5 x 100 mg) PO DAILY 135 tabs 1RF 90 days I10 - Essential (primary) hypertension Refilled rosuvastatin 5 mg PO DAILY 90 tabs 2RF 30 days E78.00 - Pure hypercholesterolemia, unspecified tolterodine ER 4 mg PO DAILY 90 caps 2RF N39.41 - Urge incontinence
== END 2025-07-31 15:06 | disposition home or self-care (01) ==
LOC: HO.HMCH 14:13
PROVIDERS: PCP Internal Medicine; Visit Provider Internal Medicine
DX: R73.02 Impaired glucose tolerance (oral) (principal); E78.00 Pure hypercholesterolemia, unspecified; I10 Essential (primary) hypertension

== ENCOUNTER → 2025-07-31 14:12 | Outpatient (BNVA) | payer MEDICARE, SELFPAY | PROVIDERS: PCP Internal Medicine; Visit Provider Internal Medicine | DX: R73.02 Impaired glucose tolerance (oral) (principal); E78.00 Pure hypercholesterolemia, unspecified; I10 Essential (primary) hypertension; Z79.899 Other long term (current) drug therapy; Z13.30 Encounter for screening examination for mental health and behavioral disorders, unspecified | CPT/HCPCS: 96127; 99212 ==